=== PATIENT | female | born 1945 | race Caucasian/White ===

== ENCOUNTER → 2017-07-21 | Outpatient (CLI) | payer MEDICARE, BC ==
[2017-07-21 15:19] LABS: Blood Urea Nitrogen 12 mg/dL (7-17)
--- NOTE | 2017-07-21 16:50 | CT ---
EXAMINATION TYPE: CT chest w con DATE OF EXAM: 07/21/2017 COMPARISON: 12/05/2011 HISTORY: 72-year-old female with cough and previous abnormal finding in the lungs. TECHNIQUE: Contiguous axial scanning of the chest after the administration of 100 mL of Omnipaque 300 . Coronal/sagittal reconstructions performed. CT DLP: 376.4mGycm. Automatic exposure control utilized for a dose reduction. FINDINGS: The heart is upper limits of normal in size without pericardial effusion. Aorta normal caliber with bovine configuration to the aortic arch. Large caliber to the main right and left pulmonary arteries are 2.8 cm each suggesting underlying pul monary arterial hypertension. No thoracic lymphadenopathy by CT size criteria. Scattered areas of density in the lower lobes especially dependently likely relate to areas of atelec tasis. No consolidation or pleural effusion. Visualized upper abdomen shows a large hiatal hernia and cholecystectomy clips. Bones: Endplate spondylosis mid to lower thoracic spine. Degenerative changes both shoulders; no osse ous destructive process. IMPRESSION: 1. Enlarged caliber to the main right and left pulmonary arteries. Correlate for pulmonary arterial h ypertension. 2. Large hiatal hernia redemonstrated. 3. Patchy atelectasis in the lower lungs.
== END | disposition home or self-care (01) ==
LOC: RADCTMAIN 14:39
PROVIDERS: ATTEND Family Medicine
DX: J98.11 Atelectasis (principal); K44.9 Diaphragmatic hernia without obstruction or gangrene; I77.89 Other specified disorders of arteries and arterioles; I28.9 Disease of pulmonary vessels, unspecified
CPT/HCPCS: 82565; 84520; 71260; 36415; Q9967

== ENCOUNTER 2017-08-09 08:12 | Day surgery (SDC) | payer MEDICARE, BC ==
[~2017-08-09 08:12] MED LIST: LACTATED RINGERS 1,000 ML IV SCH
[2017-08-09] MEDS ORDERED: LIDOCAINE 1% 20 ML VIAL (10MG/ML) FOR IV START INTRADERMA ONE (08:51)
[2017-08-09 09:05] VITALS: TEMP 97.3
--- NOTE | 2017-08-09 09:15 | P.GSHP ---
History of Present Illness H&P Date: 08/09/17 Chief Complaint: GERD This a 72-year-old female for flexkevin Mccormick. Patient presents today for EGD. Past Medical History Past Medical History: Diabetes Mellitus, GERD/Reflux, Hypertension, Rheumatoid Arthritis (RA), Thyroid Disorder Additional Past Medical History / Comment(s): HX H-PYLORI , SCIATICA PAIN. History of Any Multi-Drug Resistant Organisms: None Reported Past Surgical History: Cholecystectomy, Hysterectomy, Joint Replacement Additional Past Surgical History / Comment(s): TOTAL LEFT KNEE Past Anesthesia/Blood Transfusion Reactions: No Reported Reaction Past Psychological History: Depression Smoking Status: Never smoker Past Alcohol Use History: None Reported Past Drug Use History: None Reported - Past Family History Father Family Medical History: Myocardial Infarction ([place]) Mother Family Medical History: Myocardial Infarction ([place]) Medications and Allergies Home Medications Medication Instructions Recorded Confirmed Type Certolizumab Pegol [Cimzia] 200 mg SQ Q28D 07/01/14 08/09/17 History Folic Acid 1 mg PO DAILY 07/01/14 08/09/17 History Methotrexate Sodium [Methotrexate] 10 mg PO TU 07/01/14 08/09/17 History Omeprazole [PriLOSEC] 20 mg PO DAILY 07/01/14 08/09/17 History Pravastatin Sodium [Pravachol] 40 mg PO DAILY 07/01/14 08/09/17 History metFORMIN HCL [Glucophage] 1,000 mg PO BID-W/MEALS 07/01/14 08/06/17 History Aspirin EC [Ecotrin Low Dose] 81 mg PO DAILY #30 tablet. 07/02/14 08/06/17 Rx Levothyroxine Sodium [Synthroid] 125 mcg PO DAILY 02/18/16 08/09/17 History Cyanocobalamin (Vitamin B-12) 1,000 mcg PO DAILY 08/06/17 08/06/17 History [Vitamin B-12] HYDROcodone/APAP 5-325MG [[place] 1 tab PO DAILY PRN 08/06/17 08/06/17 History 5-325] Multivit-Min/FA/Lycopen/Lutein 1 each PO DAILY 08/06/17 08/06/17 History [Centrum Silver Tablet] amLODIPine BES/OLMESARTAN MED 1 each PO DAILY 08/06/17 08/09/17 History [amLODIPine BES/OLMESARTAN MED 10-40 mg] Allergies Allergy/AdvReac Type Severity Reaction Status Date / Time No Known Allergies Allergy Verified 08/06/17 09:33 Surgical - Exam Vital Signs Temp Pulse Resp BP Pulse Ox 97.3 F L 78 16 137/78 97 08/09/17 09:04 08/09/17 09:04 08/09/17 09:04 08/09/17 09:04 08/09/17 09:04 - General well developed, no distress - Eyes PERRL - ENT normal pinna - Neck no masses - Respiratory normal expansion - Cardiovascular Rhythm: regular - Abdomen Abdomen: soft, non tender Assessment and Plan Assessment: GERD. We'll perform EGD.
[2017-08-09 09:17] LABS: Glucose,Whole Blood 127 mg/dL (75-99)
[2017-08-09] MEDS ORDERED: PROPOFOL 10 MG/ML 20 ML VIAL IV ONE (09:18)
[2017-08-09] MEDS ORDERED: LIDOCAINE 1% INJ 10MG/ML (20 ML MDV) ONE (09:18)
--- NOTE | 2017-08-09 09:34 | P.OP ---
Date of Procedure: 08/09/17 Preoperative Diagnosis: GERD Postoperative Diagnosis: Antral gastritis Large hiatal hernia Mild esophagitis Procedure(s) Performed: EGD Anesthesia: MAC Surgeon: Fred Chi Pathology: other (Antrum, esophagus) Condition: stable Disposition: PACU Description of Procedure: The patient's placed on the endoscopy table in the lateral position. She received IV sedation. The gastroscope placed oropharynx passed in the esophagus and stomach. Scope was then placed through the pylorus. The first and second portion of the duodenum appeared normal. Scope was then brought back the antrum this was mildly inflamed. A biopsies performed. The scope was then retroflexed and the remainder of the stomach appeared normal. Air was a large hiatal hernia. Approximately 30% to the stomach was within the chest. The hernia had a large mouth. The GE junction was at 36 cm. The distal esophagus was mildly inflamed a biopsies performed. The proximal esophagus appeared normal. Scope was withdrawn for patient.
[2017-08-09 09:42] LABS: Glucose,Whole Blood 134 mg/dL (75-99)
[2017-08-09 09:47] VITALS: RESP 18
[2017-08-09 10:00] VITALS: BP 113/73; PULSE 61
== END 2017-08-09 10:15 | disposition home or self-care (01) ==
LOC: ORWHC2ENDO 08:12
PROVIDERS: ATTEND Surgery
DX: K29.50 Unspecified chronic gastritis without bleeding (principal); K44.9 Diaphragmatic hernia without obstruction or gangrene; K21.0 Gastro-esophageal reflux disease with esophagitis; E11.9 Type 2 diabetes mellitus without complications; I10 Essential (primary) hypertension; M06.9 Rheumatoid arthritis, unspecified; E07.9 Disorder of thyroid, unspecified; F32.9 Major depressive disorder, single episode, unspecified; E78.5 Hyperlipidemia, unspecified; Z79.84 Long term (current) use of oral hypoglycemic drugs; Z79.82 Long term (current) use of aspirin; Z79.890 Hormone replacement therapy; Z79.899 Other long term (current) drug therapy
CPT/HCPCS: 88305; 43239; J2001; J2704

== ENCOUNTER → 2017-08-23 | Outpatient (CLI) | payer MEDICARE, BC ==
[2017-08-23 11:21] LABS: Basophils % (A) 1 %; Eosinophils # (A) 0.1 k/uL (0-0.7); Eosinophils % (A) 2 %; HCT 37.2 % (34.0-46.0); HGB 11.9 gm/dL (11.4-16.0); Hypochromasia Slight; Lymphocytes # (A) 2.6 k/uL (1.0-4.8); Lymphocytes % (A) 48 %; MCH 27.4 pg (25.0-35.0); MCV 85.6 fL (80.0-100.0); Mean Platelet Volume 8.3; Monocytes # (A) 0.4 k/uL (0-1.0); Monocytes % (A) 7 %; Neutrophils # (A) 2.1 k/uL (1.3-7.7); Neutrophils % (A) 39 %; Platelet Count 300 k/uL (150-450); RBC 4.35 m/uL (3.80-5.40); RDW 15.9 % (11.5-15.5); WBC 5.3 k/uL (3.8-10.6)
== END | disposition home or self-care (01) ==
LOC: LABPAT 10:46
PROVIDERS: ATTEND Surgery
DX: Z01.812 Encounter for preprocedural laboratory examination (principal); K21.0 Gastro-esophageal reflux disease with esophagitis; F17.200 Nicotine dependence, unspecified, uncomplicated; D64.9 Anemia, unspecified
CPT/HCPCS: 36415; 85025; 86850; 86900; 86901

== ENCOUNTER 2017-08-30 08:50 | Day surgery (SDC) | payer MEDICARE, BC ==
[~2017-08-30 08:50] MED LIST changes: +HEPARIN SODIUM,PORCINE 5,000 UNIT/ML 1 ML VIAL SQ ONE; +LIDOCAINE 1% 20 ML VIAL (10MG/ML) FOR IV START INTRADERMA PRN; +ONDANSETRON 4 MG/2 ML VIAL IVP ONE; +ceFAZolin IN SWFI 2 GM/20 ML SYRINGE IVP ONE
--- NOTE | 2017-08-30 09:04 | P.GSHP ---
History of Present Illness H&P Date: 08/30/17 Chief Complaint: GERD Is a 72-year-old female for flexure Jace.The patient has had long-standing problems with reflux esophagitis. The patient underwent recent EGD is found have evidence of esophagitis. Patient has been well informed on the procedure of laparoscopic Gayle fundoplication. The patient is aware the risk of the conversion to the open procedure, risk of injury to the stomach, liver and spleen. The patient is also a risk of recurrent GERD and dysphagia symptoms. The patient understands there is a postoperative diet of full liquids for 2 weeks after surgery. Past Medical History Past Medical History: Diabetes Mellitus, GERD/Reflux, Hypertension, Rheumatoid Arthritis (RA), Thyroid Disorder Additional Past Medical History / Comment(s): HX H-PYLORI , SCIATICA PAIN Hiatal hernia History of Any Multi-Drug Resistant Organisms: None Reported Past Surgical History: Cholecystectomy, Hysterectomy, Joint Replacement Additional Past Surgical History / Comment(s): TOTAL LEFT KNEE Past Anesthesia/Blood Transfusion Reactions: No Reported Reaction Past Psychological History: Depression Smoking Status: Never smoker Past Alcohol Use History: None Reported Past Drug Use History: None Reported - Past Family History Father Family Medical History: Myocardial Infarction ([place]) Mother Family Medical History: Myocardial Infarction ([place]) Medications and Allergies Home Medications Medication Instructions Recorded Confirmed Type Certolizumab Pegol [Cimzia] 200 mg SQ Q28D 07/01/14 08/19/17 History Folic Acid 1 mg PO DAILY 07/01/14 08/19/17 History Methotrexate Sodium [Methotrexate] 10 mg PO TU 07/01/14 08/19/17 History Omeprazole [PriLOSEC] 20 mg PO DAILY 07/01/14 08/19/17 History Pravastatin Sodium [Pravachol] 40 mg PO DAILY 07/01/14 08/19/17 History metFORMIN HCL [Glucophage] 1,000 mg PO BID-W/MEALS 07/01/14 08/19/17 History Aspirin EC [Ecotrin Low Dose] 81 mg PO DAILY #30 tablet. 07/02/14 08/19/17 Rx Levothyroxine Sodium [Synthroid] 125 mcg PO DAILY 02/18/16 08/19/17 History Cyanocobalamin (Vitamin B-12) 1,000 mcg PO DAILY 08/06/17 08/19/17 History [Vitamin B-12] HYDROcodone/APAP 5-325MG [[place] 1 tab PO DAILY PRN 08/06/17 08/19/17 History 5-325] Multivit-Min/FA/Lycopen/Lutein 1 each PO DAILY 08/06/17 08/19/17 History [Centrum Silver Tablet] amLODIPine BES/OLMESARTAN MED 1 each PO DAILY 08/06/17 08/19/17 History [amLODIPine BES/OLMESARTAN MED 10-40 mg] Allergies Allergy/AdvReac Type Severity Reaction Status Date / Time No Known Allergies Allergy Verified 08/19/17 09:09 Surgical - Exam - General well developed, no distress - Eyes PERRL - ENT normal pinna - Neck no masses - Respiratory normal expansion - Cardiovascular Rhythm: regular - Abdomen Abdomen: soft, non tender Assessment and Plan Assessment: GERD. We will perform laparoscopic Gayle fundal plication.
[2017-08-30 09:31] LABS: Glucose,Whole Blood 133 mg/dL (75-99)
[2017-08-30] MEDS ORDERED: LEVOTHYROXINE 125 MCG TAB PO STA (09:35)
[2017-08-30] MEDS ORDERED: GLYCOPYRROLATE 0.2 MG/ML 2 ML VIAL ONE (09:37)
[2017-08-30] MEDS ORDERED: PROPOFOL 10 MG/ML 20 ML VIAL IV ONE (09:37)
[2017-08-30] MEDS ORDERED: MIDAZOLAM 2 MG/2 ML VIAL ONE (09:37)
[2017-08-30] MEDS ORDERED: NEOSTIGMINE 1 MG/ML 10 ML VIAL ONE (09:37)
[2017-08-30] MEDS ORDERED: ROCURONIUM BROMIDE 10 MG/ML 10 ML VIAL IV ONE (09:37)
[2017-08-30] MEDS ORDERED: ePHEDrine 50 MG/ML 1 ML AMP ONE (09:37)
[2017-08-30] MEDS ORDERED: fentaNYL (PF) 50 MCG/ML 2 ML AMP ONE (09:37)
[2017-08-30] MEDS ORDERED: LIDOCAINE 1% INJ 10MG/ML (20 ML MDV) ONE (09:37)
[2017-08-30] MEDS ORDERED: SUCCINYLCHOLINE CHLORIDE 100 MG/5 ML SYR IV ONE (09:37)
[2017-08-30] MEDS ORDERED: BUPIVACAINE (PF) 0.25% 30 ML VIAL SQ ONE (10:01)
[2017-08-30] MEDS ORDERED: LACTATED RINGERS 1,000 ML IV ONE (10:25)
[2017-08-30] MEDS ORDERED: MORPHINE SULFATE 4MG/4ML SYRG IVP PRN ×2 (10:58→14:13)
[2017-08-30] MEDS ORDERED: ONDANSETRON 4 MG/2 ML VIAL IVP PRN (10:58)
[2017-08-30] MEDS: MORPHINE SULFATE 2 MG/ML SYRINGE IV PRN ×4 (11:15→11:48)
[2017-08-30] MEDS ORDERED: MEPERIDINE 50 MG/ML SYRINGE IVP ONE ×2 (11:25→11:32)
[2017-08-30 12:04] LABS: Glucose,Whole Blood 150 mg/dL (75-99)
[2017-08-30] MEDS: D5-0.45% NACL WITH KCL 20MEQ/L 1,000 ML IV SCH ×2 (12:29→20:13)
--- NOTE | 2017-08-30 12:45 | P.OP ---
Date of Procedure: 08/30/17 Preoperative Diagnosis: GERD Postoperative Diagnosis: Large hiatal hernia Procedure(s) Performed: Laparoscopic Gayle fundoplication with mesh repair of hiatal hernia Anesthesia: ERIC Surgeon: Fred Chi Estimated Blood Loss (ml): 5 Pathology: none sent Condition: stable Disposition: PACU Description of Procedure: The patient was placed on the operating table in the supine position. She received general anesthesia. She was then placed in dorsal lithotomy position. Her abdomen was prepped and draped in the usual sterile fashion. The skin incision sites were anesthetized with 1% local Xylocaine. The skin was incised in the left periumbilical area with an 11 scalpel. Using a 5 mm blade was trocar under direct visitation the peritoneal cavity was entered. And then insufflated. After adequate insufflation the laparoscope was placed back into the peritoneal cavity. Next a 5 mm trocar was placed in the right epigastric and then the right lateral position. Another 5 mm trochars placed in the left lateral position. Another 5 mm trocar placed in the left epigastric position. And the original left periumbilical trocar was exchanged for a 10 mm trocar. The left lateral lobe liver was retracted. The patient had a large hiatal hernia. Using the Harmonic scissors the crural defect was dissected in the Harmonic scissors were used to dissect the hiatal hernia sac. The fundus of the stomach was completely mobilized by using the Harmonic scissors to divide short gastric vessels. The stomach was reduced into the peritoneal cavity. The crura was dissected with the Harmonic scissors. And then the crural repair was performed using 2-0 Ethibond suture. The [facility] bio A mesh was then placed over top of the repair and secured with 2-0 Ethibond suture. Next a 58-Spanish bougie dilator was placed the patient's oral pharynx and into the esophagus into the stomach by the KNITTING DEMONSTRATOR. The fundoplication was then performed using 2-0 Ethibond suture. A 180 fundoplication was performed. At this point the dilator was withdrawn. The stomach and esophagus were inspected there is known to any injury to the stomach or esophagus. The abdomen was irrigated there is no bleeding seen. The trochars are withdrawn. Skin was closed interrupted 3-0 Monocryl suture. Dermabond was applied. Patient tolerated procedure well and was sent to recovery in stable condition.
[2017-08-30] MEDS: METOCLOPRAMIDE 5 MG/ML 2 ML VIAL IVP SCH ×2 (13:37→17:16)
[2017-08-30] MEDS: MORPHINE SULFATE 4MG/4ML SYRG IVP PRN ×3 (14:25→20:59)
--- NOTE | 2017-08-30 14:32 | P.CONS ---
History of Present Illness - Reason for Consult Consult date: 08/30/17 Medical management Requesting physician: Fred Chi - Chief Complaint Status post Gayle fundoplication - History of Present Illness This is a 72-year-old female, patient of [facility]. She has a known past medical history of GERD, diabetes mellitus type 2, hypertension, rheumatoid arthritis, TIA and hyperlipidemia. Patient presents to the hospital for a laparoscopic Gayle fundoplication with mesh repair of hiatal hernia. Patient tolerated surgery well. She is currently complaining a lot of shoulder pain which likely contributed to gas pain. She is just starting to wake up after surgery. Nursing staff will be getting patient up shortly to ambulate. She denies any chest pain or shortness of breath. Denies any nausea or vomiting. Denies any abdominal pain. Denies any urinary symptoms or bowel movement changes prior to surgery. She is not passing gas. We have been consulted for medical management. Review of Systems Please refer to HPI otherwise unremarkable Past Medical History Past Medical History: Diabetes Mellitus, GERD/Reflux, Hypertension, Rheumatoid Arthritis (RA), Thyroid Disorder Additional Past Medical History / Comment(s): HX H-PYLORI , SCIATICA PAIN Hiatal hernia History of Any Multi-Drug Resistant Organisms: None Reported Past Surgical History: Cholecystectomy, Hysterectomy, Joint Replacement Additional Past Surgical History / Comment(s): TOTAL LEFT KNEE Past Anesthesia/Blood Transfusion Reactions: No Reported Reaction Past Psychological History: Depression Smoking Status: Never smoker Past Alcohol Use History: None Reported Past Drug Use History: None Reported - Past Family History Father Family Medical History: Myocardial Infarction ([place]) Mother Family Medical History: Myocardial Infarction ([place]) Medications and Allergies Home Medications Medication Instructions Recorded Confirmed Type Certolizumab Pegol [Cimzia] 200 mg SQ Q28D 07/01/14 08/30/17 History Folic Acid 1 mg PO DAILY 07/01/14 08/30/17 History Methotrexate Sodium [Methotrexate] 10 mg PO TU 07/01/14 08/30/17 History Omeprazole [PriLOSEC] 20 mg PO DAILY 07/01/14 08/30/17 History Pravastatin Sodium [Pravachol] 40 mg PO DAILY 07/01/14 08/30/17 History metFORMIN HCL [Glucophage] 1,000 mg PO BID-W/MEALS 07/01/14 08/30/17 History Aspirin EC [Ecotrin Low Dose] 81 mg PO DAILY #30 tablet. 07/02/14 08/30/17 Rx Levothyroxine Sodium [Synthroid] 125 mcg PO DAILY 02/18/16 08/30/17 History Cyanocobalamin (Vitamin B-12) 1,000 mcg PO DAILY 08/06/17 08/30/17 History [Vitamin B-12] HYDROcodone/APAP 5-325MG [[place] 1 tab PO DAILY PRN 08/06/17 08/30/17 History 5-325] Multivit-Min/FA/Lycopen/Lutein 1 each PO DAILY 08/06/17 08/30/17 History [Centrum Silver Tablet] amLODIPine BES/OLMESARTAN MED 1 each PO DAILY 08/06/17 08/30/17 History [amLODIPine BES/OLMESARTAN MED 10-40 mg] Allergies Allergy/AdvReac Type Severity Reaction Status Date / Time No Known Allergies Allergy Verified 08/30/17 12:33 Physical Exam Vitals: Vital Signs Temp Pulse Pulse Resp BP Pulse Ox 08/30/17 12:45 64 16 107/58 100 08/30/17 12:30 64 16 106/59 98 08/30/17 12:15 97 F L 62 16 95/55 96 08/30/17 11:58 62 16 109/54 94 L 08/30/17 11:39 87 16 117/56 99 08/30/17 11:24 88 16 118/59 98 08/30/17 11:08 110 H 20 119/55 96 08/30/17 09:07 98.2 F 95 16 126/71 98 Intake and Output 08/29/17 08/30/17 08/30/17 22:59 06:59 14:59 Intake Total 1775 Output Total 10 Balance 1765 Intake: IV 1775 Output: Estimated Blood Loss 10 Other: # Voids 0 Weight 79.379 kg Head normocephalic Neck supple Lungs clear to auscultation bilaterally no wheezing or crackles Heart regular rate and rhythm S1-S2, no rub or gallop Abdomen is soft nontender nondistended positive bowel sounds no hepatosplenomegaly Extremities no edema Neuro alert and orientated to 3 Results Labs: Abnormal Lab Results - Last 24 Hours (Table) 08/30/17 08/30/17 Range/Units 09:13 12:03 POC Glucose (mg/dL) 133 H 150 H (75-99) mg/dL Assessment and Plan Assessment: 1. GERD and large hiatal hernia Status post laparoscopic Gayle fundoplication with mesh repair of hiatal hernia. Continue pain control and postop orders per surgery. Awaiting esophagram. Encouraged patient to get up and ambulate. Continue with heating pads to the shoulder area. 2. Diabetes mellitus type 2: Hold metformin. Place patient on sliding scale coverage 3. History of TIA: Aspirin 81 mg on hold 4. Rheumatoid arthritis 5. Hyperlipidemia resume statin 6. Essential hypertension: Blood pressures are in the lower 100s. We'll patient's blood pressure meds for now 7. Hypothyroidism resume Synthroid GI prophylaxis Pepcid and DVT prophylaxis Lovenox Thank you for this consultation. We'll continue to follow along during patient' s hospitalization Time with Patient: Greater than 30 (Greater than 50% of the total time spent in counseling and coordination of care.I performed an examination of the patient and discussed their management with the physician Learning And Development Specialist. I have reviewed the Physician Learning And Development Specialist's notes and agree with the documented findings and plan of care)
--- NOTE | 2017-08-30 16:42 | FL ---
EXAMINATION TYPE: FL esophagus cervic/pharynx DATE OF EXAM: 08/30/2017 LIMITED UGI-ESOPHAGRAM: CLINICAL HISTORY: History of hiatal hernia per patient, [place] fundoplication surgery earlier today. TECHNIQUE: Limited esophagram is performed utilizing 30 oz of Omnipaque 350. A total of 1.03 minutes of fluoroscopic time was utilized during procedure. 23 spot images are saved to PACS. FINDINGS: The patient swallowed contrast without difficulty or delay. Esophageal peristalsis and mo tility are satisfactory for patient's age. There is some flow of contrast along the diaphragmatic hia tus into the stomach, there is no evidence of contrast extravasation to suggest leak. Some contrast r emains in distal esophagus. No persistent hiatal hernia is seen. There is right-sided curvilinear den sity adjacent to distal aspect of esophagus at area of prior large hiatal hernia could reflect medias tinal air related to surgical procedure. Patient does not show increased nausea. Cholecystectomy clip s are noted. Pneumoperitoneum below right hemidiaphragm is seen slightly more prominent than typical. IMPRESSION: There is mild to moderate obstruction at diaphragmatic hiatus but patient does not show i ncreased symptoms of nausea. No residual hiatal hernia noted.
[2017-08-30 17:01] LABS: Glucose,Whole Blood 181 mg/dL (75-99)
[2017-08-30] MEDS: INSULIN ASPART 100 UNIT/ML 1 ML 10 ML VIAL SQ SCH ×2 (17:10→21:06)
[2017-08-30] MEDS: FAMOTIDINE 20 MG/2 ML VIAL IV SCH (20:59)
[2017-08-30 21:08] LABS: Glucose,Whole Blood 186 mg/dL (75-99)
[2017-08-31] MEDS: METOCLOPRAMIDE 5 MG/ML 2 ML VIAL IVP SCH ×3 (00:17→12:32)
[2017-08-31] MEDS: D5-0.45% NACL WITH KCL 20MEQ/L 1,000 ML IV SCH (03:41)
[2017-08-31] MEDS: MORPHINE SULFATE 4MG/4ML SYRG IVP PRN (05:59)
[2017-08-31 06:05] LABS: Glucose,Whole Blood 166 mg/dL (75-99)
[2017-08-31] MEDS: INSULIN ASPART 100 UNIT/ML 1 ML 10 ML VIAL SQ SCH ×2 (06:07→11:36)
[2017-08-31] MEDS ORDERED: LEVOTHYROXINE 125 MCG TAB PO SCH ×2 (06:30)
[2017-08-31 07:06] LABS: Basophils % (A) 0 %; Eosinophils # (A) 0.1 k/uL (0-0.7); Eosinophils % (A) 1 %; HCT 32.5 % (34.0-46.0); HGB 10.2 gm/dL (11.4-16.0); Lymphocytes # (A) 1.9 k/uL (1.0-4.8); Lymphocytes % (A) 26 %; MCH 26.6 pg (25.0-35.0); MCHC 31.3 g/dL (31.0-37.0); Mean Platelet Volume 7.5; Monocytes # (A) 0.5 k/uL (0-1.0); Monocytes % (A) 8 %; Neutrophils # (A) 4.4 k/uL (1.3-7.7); Neutrophils % (A) 62 %; Platelet Count 264 k/uL (150-450); RBC 3.82 m/uL (3.80-5.40)
[2017-08-31] MEDS: FAMOTIDINE 20 MG/2 ML VIAL IV SCH (08:47)
[2017-08-31] MEDS ORDERED: PRAVASTATIN SODIUM 40 MG TAB PO SCH (09:00)
[2017-08-31] MEDS ORDERED: ENOXAPARIN 40 MG/0.4 ML SYRINGE SQ SCH (09:00)
[2017-08-31] MEDS ORDERED: MORPHINE ORAL SOLN 10 MG/5 ML CUP PO PRN (09:24)
[2017-08-31] MEDS ORDERED: LOSARTAN 50 MG TAB PO SCH (10:00)
[2017-08-31] MEDS ORDERED: amLODIPine 10 MG TAB PO SCH (10:00)
--- NOTE | 2017-08-31 10:00 | P.PN ---
Subjective Progress Note Date: 08/31/17 This is a 72-year-old female, patient of [facility]. She has a known past medical history of GERD, diabetes mellitus type 2, hypertension, rheumatoid arthritis, TIA and hyperlipidemia. Patient presents to the hospital for a laparoscopic Gayle fundoplication with mesh repair of hiatal hernia. Patient tolerated surgery well. She is currently complaining a lot of shoulder pain which likely contributed to gas pain. She is just starting to wake up after surgery. Nursing staff will be getting patient up shortly to ambulate. She denies any chest pain or shortness of breath. Denies any nausea or vomiting. Denies any abdominal pain. Denies any urinary symptoms or bowel movement changes prior to surgery. She is not passing gas. We have been consulted for medical management. 08/31/2017 patient is tolerating diet. Her shoulder and gas pain has resolved. She denies any passing gas or bowel movement yet. Denies any burning with urination. Denies any chest pain or shortness of breath. Anticipating discharge later this afternoon. Objective - Vital Signs Vital signs: Vital Signs Temp 98.2 F 08/31/17 00:00 Pulse 82 08/31/17 00:00 Resp 18 08/31/17 00:00 BP 122/67 08/31/17 00:00 Pulse Ox 95 08/31/17 00:00 Intake & Output 08/30/17 08/31/17 08/31/17 18:59 06:59 18:59 Intake Total 1775 1170 Output Total 10 Balance 1765 1170 Weight 79.379 kg Intake: IV 1775 Intake, IV Titration 930 Amount D5-0.45% NaCl with KCl 930 20Meq/l 1,000 ml @ 125 mls/hr IV .Q8H HEENA Rx#: [id number] Oral 240 Output: Estimated Blood Loss 10 Other: # Voids 0 1 - Exam Head normocephalic Neck supple Lungs clear to auscultation bilaterally no wheezing or crackles Heart regular rate and rhythm S1-S2, no rub or gallop Abdomen is soft nontender nondistended positive bowel sounds no hepatosplenomegaly Extremities no edema Neuro alert and orientated to 3 - Labs CBC & Chem 7: 08/31/17 06:26 Labs: Abnormal Lab Results - Last 24 Hours (Table) 08/30/17 08/30/17 08/30/17 Range/Units 12:03 17:00 20:58 Hgb (11.4-16.0) gm/dL Hct (34.0-46.0) % RDW (11.5-15.5) % POC Glucose (mg/dL) 150 H 181 H 186 H (75-99) mg/dL 08/31/17 08/31/17 Range/Units 06:03 06:26 Hgb 10.2 L (11.4-16.0) gm/dL Hct 32.5 L (34.0-46.0) % RDW 16.0 H (11.5-15.5) % POC Glucose (mg/dL) 166 H (75-99) mg/dL Assessment and Plan Assessment: 1. GERD and large hiatal hernia Status post laparoscopic Gayle fundoplication with mesh repair of hiatal hernia. Continue pain control and postop orders per surgery. Esophagram showing mild to moderate obstruction at diaphragmatic hiatus. Tolerating diet 2. Diabetes mellitus type 2: Hold metformin. Place patient on sliding scale coverage 3. History of TIA: Aspirin 81 mg on hold 4. Rheumatoid arthritis 5. Hyperlipidemia resume statin 6. Essential hypertension: Blood pressure has shown improvement. We'll resume patient's blood pressure medication 7. Hypothyroidism resume Synthroid GI prophylaxis Pepcid and DVT prophylaxis Lovenox Patient is medically stable for discharge once cleared by surgical service I performed an examination of the patient and discussed their management with the physician Tour Coordinator. I have reviewed the Physician Tour Coordinator's notes and agree with the documented findings and plan of care
--- NOTE | 2017-08-31 10:04 | P.DS ---
Providers Expected date of discharge: 08/31/17 Attending physician: Fred Chi Consults: 08/30/17 10:58 Consult Physician Routine Consulting Provider: Tomer Johns Consult Reason/Comments: Medical management Do you want consulting provider notified?: Yes Primary care physician: Milly Mccormick [facility] Course: 72-year-old female admitted on elective admission to undergo laparoscopic gayle fundoplication for long-standing problems with reflux esophagitis patient did undergo a recent EGD showed evidence of esophagitis postop tolerating full liquid diet. Surgical incision sites were dry patient was up ambulatory on the unit. Pain medication effective for pain control patient was felt to be stable to proceed with a discharge to home Impression discharge diagnoses A recent EGD showing evidence of esophagitis Chronic reflux esophagitis Status post August 30 laparoscopic Gayle fundoplication for symptomatic esophageal reflux esophagitis Type 2 diabetes Hypertension essential Rheumatoid arthritis Hyperlipidemia Hypothyroid History of a TIA on aspirin The above impression and plan of care have been discussed and directed by signing physician. Lzu Boyce nurse practitioner acting as scribe for signing physician. Plan - Discharge Summary Discharge Rx Participant: Yes New Discharge Prescriptions: Continue Omeprazole [PriLOSEC] 20 mg PO DAILY Certolizumab Pegol [Cimzia] 200 mg SQ Q28D Methotrexate Sodium [Methotrexate] 10 mg PO TU metFORMIN HCL [Glucophage] 1,000 mg PO BID-W/MEALS Folic Acid 1 mg PO DAILY Pravastatin Sodium [Pravachol] 40 mg PO DAILY Aspirin EC [Ecotrin Low Dose] 81 mg PO DAILY #30 tablet. Levothyroxine Sodium [Synthroid] 125 mcg PO DAILY amLODIPine BES/OLMESARTAN MED [amLODIPine BES/OLMESARTAN MED 10-40 mg] 1 each PO DAILY HYDROcodone/APAP 5-325MG [[place] 5-325] 1 tab PO DAILY PRN PRN Reason: Pain Multivit-Min/FA/Lycopen/Lutein [Centrum Silver Tablet] 1 each PO DAILY Cyanocobalamin (Vitamin B-12) [Vitamin B-12] 1,000 mcg PO DAILY Discharge Medication List Certolizumab Pegol [Cimzia] 200 mg SQ Q28D 07/01/14 [History] Folic Acid 1 mg PO DAILY 07/01/14 [History] Methotrexate Sodium [Methotrexate] 10 mg PO TU 07/01/14 [History] Omeprazole [PriLOSEC] 20 mg PO DAILY 07/01/14 [History] Pravastatin Sodium [Pravachol] 40 mg PO DAILY 07/01/14 [History] metFORMIN HCL [Glucophage] 1,000 mg PO BID-W/MEALS 07/01/14 [History] Aspirin EC [Ecotrin Low Dose] 81 mg PO DAILY #30 tablet. 07/02/14 [Rx] Levothyroxine Sodium [Synthroid] 125 mcg PO DAILY 02/18/16 [History] Cyanocobalamin (Vitamin B-12) [Vitamin B-12] 1,000 mcg PO DAILY 08/06/17 [ History] HYDROcodone/APAP 5-325MG [[place] 5-325] 1 tab PO DAILY PRN 08/06/17 [History] Multivit-Min/FA/Lycopen/Lutein [Centrum Silver Tablet] 1 each PO DAILY 08/06/17 [History] amLODIPine BES/OLMESARTAN MED [amLODIPine BES/OLMESARTAN MED 10-40 mg] 1 each PO DAILY 08/06/17 [History] Follow up Appointment(s)/Referral(s): Fred Chi MD [STAFF PHYSICIAN] - 1 Week Activity/Diet/Wound Care/Special Instructions: Full liquid diet for 2 weeks No tub bath for six weeks. Shower daily. No lifting over 10 pounds for the next 6 weeks. Encourage walking every hour while awake May use ice packs to surgical site. No driving while taking narcotic for pain. Discharge Disposition: HOME SELF-CARE
[2017-08-31 10:29] LABS: ALT 40 U/L (9-52); AST 40 U/L (14-36); Albumin 3.3 g/dL (3.5-5.0); Alkaline Phosphatase 51 U/L (38-126); Anion Gap 12 mmol/L; Blood Urea Nitrogen 9 mg/dL (7-17); Calcium 9.3 mg/dL (8.4-10.2); Carbon Dioxide 20 mmol/L (22-30); Chloride 107 mmol/L (98-107); Glucose 144 mg/dL (74-99); Potassium 4.6 mmol/L (3.5-5.1); Sodium 139 mmol/L (137-145); Total Bilirubin 0.4 mg/dL (0.2-1.3); Total Protein 6.1 g/dL (6.3-8.2)
[2017-08-31 11:31] LABS: Glucose,Whole Blood 109 mg/dL (75-99)
[2017-08-31] MEDS ORDERED: METHOTREXATE SODIUM 2.5 MG TAB PO SCH (12:00)
[2017-08-31] MEDS ORDERED: FOLIC ACID 1 MG TAB PO SCH (12:00)
[2017-08-31 14:05] VITALS: BP 140/73; PULSE 79; RESP 16; TEMP 98
[2017-08-31 14:06] LABS: Hemoglobin A1C 6.5 % (4.0-6.0)
== END 2017-08-31 16:24 | disposition home or self-care (01) ==
LOC: OR 08:50 → 6PED 10:52 → OR 08-31 16:24
PROVIDERS: ATTEND Surgery
DX: K21.9 Gastro-esophageal reflux disease without esophagitis (principal); K44.9 Diaphragmatic hernia without obstruction or gangrene; E11.9 Type 2 diabetes mellitus without complications; Z79.84 Long term (current) use of oral hypoglycemic drugs; I10 Essential (primary) hypertension; M06.9 Rheumatoid arthritis, unspecified; E03.9 Hypothyroidism, unspecified; M54.30 Sciatica, unspecified side; E78.5 Hyperlipidemia, unspecified; Z86.73 Personal history of transient ischemic attack (TIA), and cerebral infarction without residual deficits; Z79.82 Long term (current) use of aspirin; Z79.890 Hormone replacement therapy; Z79.899 Other long term (current) drug therapy
CPT/HCPCS: 80053; 85025; 83036; 74210; 43282; C1781; J2250; J1644; J2710; J2765 ×2; Q9967; J2175; J2405; J2001; J1650; J8610; J3010; J2270 ×3; J0330; J2704; J0690; 86850; 86900; 86901

== ENCOUNTER 2019-07-04 14:32 | Emergency (ER) | payer MEDICARE, BC ==
[2019-07-04 14:39] VITALS: RESP 20
[2019-07-04] MEDS ORDERED: ONDANSETRON 4 MG/2 ML VIAL IVP STA (14:55)
[2019-07-04] MEDS ORDERED: MORPHINE SULFATE 4 MG/ML SYRINGE IV STA (14:55)
[2019-07-04] MEDS ORDERED: SODIUM CHLORIDE 0.9% 1,000 ML IV STA (14:55)
--- NOTE | 2019-07-04 15:13 | ED ---
Abdominal Pain HPI - General Chief Complaint: Abdominal Pain Stated Complaint: Abdominal Pain Time Seen by Provider: 07/04/19 14:40 Source: patient Mode of arrival: ambulatory Limitations: no limitations - History of Present Illness Initial Comments: 74-year-old female patient presents to the emergency department today for evaluation of right-sided abdominal pain. Patient states the pain started around 11:00 this morning. Patient states initially the pain was intermittent, but is now constant. She denies any pain radiation through to her back. Malcom yun denies any increased pain with movement. She states the pain feels like a burning pain is deep inside. States that she has decreased appetite. No vomiting. Denies any constipation or diarrhea. Denies any hematuria, dysuria, urinary frequency, urinary urgency. Denies fever or chills. Patient denies any recent rash, shortness breath, chest pain, numbness, tingling, dizziness, weakness, headache, visual changes, or any other complaints. - Related Data Home Medications Medication Instructions Recorded Confirmed Certolizumab Pegol [Cimzia] 200 mg SQ Q28D 07/01/14 08/30/17 Folic Acid 1 mg PO DAILY 07/01/14 08/30/17 Methotrexate Sodium [Methotrexate] 10 mg PO TU 07/01/14 08/30/17 Omeprazole [PriLOSEC] 20 mg PO DAILY 07/01/14 08/30/17 Pravastatin Sodium [Pravachol] 40 mg PO DAILY 07/01/14 08/30/17 metFORMIN HCL [Glucophage] 1,000 mg PO BID-W/MEALS 07/01/14 08/30/17 Levothyroxine Sodium [Synthroid] 125 mcg PO DAILY 02/18/16 08/30/17 Cyanocobalamin (Vitamin B-12) 1,000 mcg PO DAILY 08/06/17 08/30/17 [Vitamin B-12] HYDROcodone/APAP 5-325MG [[place] 1 tab PO DAILY PRN 08/06/17 08/30/17 5-325] Multivit-Min/FA/Lycopen/Lutein 1 each PO DAILY 08/06/17 08/30/17 [Centrum Silver Tablet] amLODIPine BES/OLMESARTAN MED 1 each PO DAILY 08/06/17 08/30/17 [amLODIPine BES/OLMESARTAN MED 10-40 MG] Previous Rx's Medication Instructions Recorded Aspirin EC [Ecotrin Low Dose] 81 mg PO DAILY #30 tablet. 07/02/14 Allergies Allergy/AdvReac Type Severity Reaction Status Date / Time No Known Allergies Allergy Verified 07/04/19 14:39 Review of Systems ROS Statement: Those systems with pertinent positive or pertinent negative responses have been documented in the HPI. ROS Other: All systems not noted in ROS Statement are negative. Past Medical History Past Medical History: Diabetes Mellitus, GERD/Reflux, Hypertension, Rheumatoid Arthritis (RA), Thyroid Disorder Additional Past Medical History / Comment(s): HX H-PYLORI , SCIATICA PAIN Hiatal hernia History of Any Multi-Drug Resistant Organisms: None Reported Past Surgical History: Cholecystectomy, Hysterectomy, Joint Replacement Additional Past Surgical History / Comment(s): TOTAL LEFT KNEE Past Anesthesia/Blood Transfusion Reactions: No Reported Reaction Past Psychological History: Depression Smoking Status: Never smoker Past Alcohol Use History: None Reported Past Drug Use History: None Reported - Past Family History Father Family Medical History: Myocardial Infarction ([place]) Mother Family Medical History: Myocardial Infarction ([place]) General Exam Limitations: no limitations General appearance: alert, in no apparent distress, other (This is a well- developed, well-nourished elderly female patient in no acute distress. Vital signs upon presentation are temperature 97.7F, pulse 93, respirations 20, blood pressure 146/85, pulse ox 99% on room air) Eye exam: Present: normal appearance, PERRL, EOMI. Absent: scleral icterus, conjunctival injection, periorbital swelling ENT exam: Present: normal exam, normal oropharynx, mucous membranes moist Respiratory exam: Present: normal lung sounds bilaterally. Absent: respiratory distress, wheezes, rales, rhonchi, stridor Cardiovascular Exam: Present: regular rate, normal rhythm, normal heart sounds. Absent: systolic murmur, diastolic murmur, rubs, gallop, clicks GI/Abdominal exam: Present: soft, normal bowel sounds. Absent: distended, tenderness, guarding, rebound, rigid Neurological exam: Present: alert, oriented X3, CN II-XII intact Psychiatric exam: Present: normal affect, normal mood Skin exam: Present: warm, dry, intact, normal color. Absent: rash Course Vital Signs 07/04/19 14:37 Temperature 97.7 F Pulse Rate 93 Respiratory 20 Rate Blood Pressure 146/85 O2 Sat by Pulse 99 Oximetry Medical Decision Making - Medical Decision Making 74-year-old female patient presents to the emergency department today for eval uation of right-sided abdominal pain. Patient is reporting a deep burning type pain. Physical examination did reveal soft nontender abdomen. Pain was not reproducible palpation of the abdomen. Labs reviewed and did reveal elevated white blood cell count at 12.6. Patient is afebrile with stable vital signs. CT of the abdomen and pelvis shows dilated fluid-filled loops of small bowel. No evidence for obstruction. Findings are consistent with enteritis. There is also a lesion on the liver measuring 15 mm. Patient was given IV fluids and morphine here in the emergency department. Upon reevaluation patient does report improvement of symptoms. States that her pain is very low. She is resting comfortably. She does feel comfortable being discharged home. We did discuss findings on computed tomography scan including the liver lesion. She is informed that this may be cancerous and she should have it evaluated by her primary care physician with further imaging or studies. She verbalizes understanding of this. She is instructed follow up with her primary care physician for recheck in 1-2 days. Return parameters were discussed in detail. She verbalizes understanding and agrees with this plan. - Lab Data Result diagrams: 07/04/19 14:59 07/04/19 14:59 Lab Results 07/04/19 07/04/19 07/04/19 Range/Units 14:59 14:59 14:59 WBC 12.5 H (3.8-10.6) k/uL RBC 4.65 (3.80-5.40) m/uL Hgb 14.1 (11.4-16.0) gm/dL Hct 43.2 (34.0-46.0) % MCV 92.8 (80.0-100.0) fL MCH 30.4 (25.0-35.0) pg MCHC 32.7 (31.0-37.0) g/dL RDW 12.4 (11.5-15.5) % Plt Count 254 (150-450) k/uL Neutrophils % 68 % Lymphocytes % 22 % Monocytes % 6 % Eosinophils % 2 % Basophils % 0 % Neutrophils # 8.5 H (1.3-7.7) k/uL Lymphocytes # 2.7 (1.0-4.8) k/uL Monocytes # 0.7 (0-1.0) k/uL Eosinophils # 0.2 (0-0.7) k/uL Basophils # 0.0 (0-0.2) k/uL Sodium 135 L (137-145) mmol/L Potassium 4.7 (3.5-5.1) mmol/L Chloride 103 (98-107) mmol/L Carbon Dioxide 21 L (22-30) mmol/L Anion Gap 11 mmol/L BUN 19 H (7-17) mg/dL Creatinine 0.85 (0.52-1.04) mg/dL Est GFR (CKD-EPI)AfAm 79 (>60 ml/min/1.73 sqM) Est GFR (CKD-EPI)NonAf 68 (>60 ml/min/1.73 sqM) Glucose 127 H (74-99) mg/dL Plasma Lactic Acid Reza 1.8 (0.7-2.0) mmol/L Calcium 10.4 H (8.4-10.2) mg/dL Total Bilirubin 0.4 (0.2-1.3) mg/dL AST 26 (14-36) U/L ALT 18 (4-34) U/L Alkaline Phosphatase 76 (38-126) U/L Total Protein 8.0 (6.3-8.2) g/dL Albumin 4.6 (3.5-5.0) g/dL Amylase 88 (30-110) U/L Lipase 233 (23-300) U/L Urine Color Urine Appearance (Clear) Urine pH (5.0-8.0) Ur Specific [place] (1.001-1.035) Urine Protein (Negative) Urine Glucose (UA) (Negative) Urine Ketones (Negative) Urine Blood (Negative) Urine Nitrite (Negative) Urine Bilirubin (Negative) Urine Urobilinogen (<2.0) mg/dL Ur Leukocyte Esterase (Negative) 07/04/19 Range/Units 16:00 WBC (3.8-10.6) k/uL RBC (3.80-5.40) m/uL Hgb (11.4-16.0) gm/dL Hct (34.0-46.0) % MCV (80.0-100.0) fL MCH (25.0-35.0) pg MCHC (31.0-37.0) g/dL RDW (11.5-15.5) % Plt Count (150-450) k/uL Neutrophils % % Lymphocytes % % Monocytes % % Eosinophils % % Basophils % % Neutrophils # (1.3-7.7) k/uL Lymphocytes # (1.0-4.8) k/uL Monocytes # (0-1.0) k/uL Eosinophils # (0-0.7) k/uL Basophils # (0-0.2) k/uL Sodium (137-145) mmol/L Potassium (3.5-5.1) mmol/L Chloride (98-107) mmol/L Carbon Dioxide (22-30) mmol/L Anion Gap mmol/L BUN (7-17) mg/dL Creatinine (0.52-1.04) mg/dL Est GFR (CKD-EPI)AfAm (>60 ml/min/1.73 sqM) Est GFR (CKD-EPI)NonAf (>60 ml/min/1.73 sqM) Glucose (74-99) mg/dL Plasma Lactic Acid Reza (0.7-2.0) mmol/L Calcium (8.4-10.2) mg/dL Total Bilirubin (0.2-1.3) mg/dL AST (14-36) U/L ALT (4-34) U/L Alkaline Phosphatase (38-126) U/L Total Protein (6.3-8.2) g/dL Albumin (3.5-5.0) g/dL Amylase (30-110) U/L Lipase (23-300) U/L Urine Color Yellow Urine Appearance Clear (Clear) Urine pH 5.0 (5.0-8.0) Ur Specific [place] 1.010 (1.001-1.035) Urine Protein Negative (Negative) Urine Glucose (UA) Negative (Negative) Urine Ketones Negative (Negative) Urine Blood Negative (Negative) Urine Nitrite Negative (Negative) Urine Bilirubin Negative (Negative) Urine Urobilinogen <2.0 (<2.0) mg/dL Ur Leukocyte Esterase Negative (Negative) - Radiology Data Radiology results: report reviewed, image reviewed CT abdomen and pelvis with contrast was obtained . Report was reviewed in its entirety. Impression by Dr. Horan shows correlate for possible enteritis. Postop changes. Indeterminate lesion within the liver, follow-up suggested. 3- phase CT her liver MRI may be of benefit. Disposition Clinical Impression: Abdominal pain, Liver lesion Disposition: HOME SELF-CARE Condition: Good Instructions (If sedation given, give patient instructions): Abdominal Pain (ED) Additional Instructions: Follow-up with your primary care physician, discuss your liver lesion and further testing. Increase fluids. Rest. Avoid fatty or greasy foods. Return to the emergency department immediately for any new, worsening, or concerning sy mptoms. Is patient prescribed a controlled substance at d/c from ED?: No Referrals: Milly Mccormick DO [Primary Care Provider] - 1-2 days Time of Disposition: 16:59
[2019-07-04 15:20] LABS: Basophils % (A) 0 %; Eosinophils # (A) 0.2 k/uL (0-0.7); Eosinophils % (A) 2 %; HCT 43.2 % (34.0-46.0); HGB 14.1 gm/dL (11.4-16.0); Lymphocytes # (A) 2.7 k/uL (1.0-4.8); Lymphocytes % (A) 22 %; MCH 30.4 pg (25.0-35.0); MCHC 32.7 g/dL (31.0-37.0); MCV 92.8 fL (80.0-100.0); Mean Platelet Volume 8.7; Monocytes # (A) 0.7 k/uL (0-1.0); Monocytes % (A) 6 %; Neutrophils # (A) 8.5 k/uL (1.3-7.7); Neutrophils % (A) 68 %; Platelet Count 254 k/uL (150-450); RBC 4.65 m/uL (3.80-5.40); RDW 12.4 % (11.5-15.5); WBC 12.5 k/uL (3.8-10.6)
[2019-07-04 15:26] LABS: Albumin 4.6 g/dL (3.5-5.0); Calcium 10.4 mg/dL (8.4-10.2); Potassium 4.7 mmol/L (3.5-5.1); Total Bilirubin 0.4 mg/dL (0.2-1.3)
--- NOTE | 2019-07-04 16:12 | CT ---
EXAMINATION TYPE: CT abdomen pelvis w con DATE OF EXAM: 07/04/2019 COMPARISON: Prior CT 04/10/2013 HISTORY: RUQ pain CT DLP: 1429.1 mGycm Automated exposure control for dose reduction was used. TECHNIQUE: Helical acquisition of images from the lung bases through the pelvis have been completed. CONTRAST: Performed without Oral Contrast and with IV Contrast, patient injected with 100 mL of Isovue 300. FINDINGS: Postop changes are noted the gastroesophageal junction. There is thickening of the esophagu s at this level. LUNG BASES: No significant abnormality is appreciated. AORTA: No significant abnormality is appreciated. LIVER/GB: Low-attenuation focus posterior right lobe of the liver on axial image #21 measures approxi mately 15 mm and may been present on prior exam but not as well seen. Patient is post cholecystectomy . Liver is enlarged. Lesion within the right lobe is not as well seen on delayed images. PANCREAS: No significant abnormality is seen. SPLEEN: No significant abnormality is seen. ADRENALS: No significant abnormality is seen. KIDNEYS: No significant abnormality is seen. REPRODUCTIVE ORGANS: Uterus and adnexal structures are not seen. BOWEL: Fluid-filled loops of small bowel, small bowel wall thickening scattered within the abdomen. Diverticular change noted in the sigmoid colon. FREE AIR: No Free Air visible. ASCITES: None visible. PELVIC ADENOPATHY: None visualized. RETROPERITONEAL ADENOPATHY: No Retroperitoneal Adenopathy visible. URINARY BLADDER: No significant abnormality is seen. OSSEOUS STRUCTURES: Degenerative disc changes, facet arthropathy noted in the visualized spine. IMPRESSION: CORRELATE FOR POSSIBLE ENTERITIS. POSTOP CHANGES. INDETERMINATE LESION WITHIN THE LIVER, FOLLOW-UP CORNELIUS GGESTED. THREE-PHASE CT OR LIVER MRI MAY BE OF BENEFIT.
[2019-07-04 16:18] LABS: Appearance,Urine Clear (Clear); Bilirubin,Urine Negative (Negative); Blood,Urine Negative (Negative); Color,Urine Yellow; Glucose,Urine (UA) Negative (Negative); Ketones,Urine Negative (Negative); Leukocyte Esterase,Urine Negative (Negative); Nitrite,Urine Negative (Negative); Protein,Urine Negative (Negative); Urobilinogen,Urine <2.0 mg/dL (<2.0)
[2019-07-04 17:11] VITALS: BP 128/82; PULSE 73; TEMP 98.1
== END 2019-07-04 17:05 | disposition home or self-care (01) ==
LOC: EC 14:32
DX: K76.89 Other specified diseases of liver (principal); R10.9 Unspecified abdominal pain; D72.829 Elevated white blood cell count, unspecified; K63.89 Other specified diseases of intestine; R63.8 Other symptoms and signs concerning food and fluid intake; E11.9 Type 2 diabetes mellitus without complications; K21.9 Gastro-esophageal reflux disease without esophagitis; I10 Essential (primary) hypertension; M06.9 Rheumatoid arthritis, unspecified; E07.9 Disorder of thyroid, unspecified; Z79.84 Long term (current) use of oral hypoglycemic drugs; Z79.890 Hormone replacement therapy; Z79.899 Other long term (current) drug therapy; Z92.21 Personal history of antineoplastic chemotherapy; Z90.49 Acquired absence of other specified parts of digestive tract; Z96.652 Presence of left artificial knee joint
CPT/HCPCS: 36415; 80053; 82150; 83605; 83690; 85025; 81003; 74177; 99284; 96374; 96375; 96361; J2270; J2405; Q9967

== ENCOUNTER → 2019-07-24 | Outpatient (CLI) | payer MEDICARE, BC ==
--- NOTE | 2019-07-24 18:52 | MR ---
EXAMINATION TYPE: MR liver wo/w con DATE OF EXAM: 07/24/2019 COMPARISON: CT abdomen and pelvis July 04, 2019 HISTORY: Liver Lesion seen on prev CT CONTRAST: Standard multiplanar, multisequence MRI departmental protocol utilizing 9ml mL intravenous Gadavist g adolinium contrast. Imaging is performed of the abdomen focusing on the liver. FINDINGS: Exam noted suboptimal due to patient's inability to hold breath with respiratory motion art ifact aggravation. Liver: Liver is overall normal in size. Corresponding to CT there is round lesion measuring roughly 1 .2 x 1.1 x 1.2 cm in the posterior segment right hepatic lobe axial image 20 series 501 and coronal i mage 34 series 301 of slight T2 hyperintensity and T1 hypointensity image 55 series 603. Dynamic post contrast images show some peripheral nodular enhancement with progressive centripetal filling consist ent with small hemangioma. Patent hepatic veins draining into IVC are seen. No additional concerning solid or cystic intrahepatic masses. Gallbladder noted surgically absent. No suspicious extra hepatic or intrahepatic biliary dilatation. Patent nondilated main portal vein with branching patent right m iddle and left portal veins. No surrounding ascites. Other: Lung bases are grossly clear. The spleen, pancreas, both adrenal glands are normal in size. Th ere is subcentimeter T1 hyperintense and T2 hypointense lesion in the right kidney axial image 7 seri es 501 and coronal image 29 corresponding to 5 mm proteinaceous cyst. No hydronephrosis seen bilatera lly. No suspicious small or large bowel dilatation. Stomach poorly distended. Multilevel spurring in the spine particularly L3-L4 level where there is endplate changes and disc space narrowing present. IMPRESSION: There is 1.2 cm posterior segment right hepatic lobe lesion with dynamic postcontrast MRI imaging characteristics consistent with tiny benign hemangioma.
== END | disposition home or self-care (01) ==
LOC: RADMRIMAIN 14:37
PROVIDERS: ATTEND Family Medicine
DX: K76.89 Other specified diseases of liver (principal)
CPT/HCPCS: 74183; A9585

== ENCOUNTER 2019-08-02 07:43 | Day surgery (SDC) | payer MEDICARE, BC ==
[2019-07-28 14:47] VITALS: BMI 33.5
[~2019-08-02 07:43] MED LIST changes: -HEPARIN SODIUM,PORCINE 5,000 UNIT/ML 1 ML VIAL SQ ONE; +LIDOCAINE 1% (10MG/ML) FOR IV START INTRADERMA PRN; -LIDOCAINE 1% 20 ML VIAL (10MG/ML) FOR IV START INTRADERMA PRN; -ONDANSETRON 4 MG/2 ML VIAL IVP ONE; -ceFAZolin IN SWFI 2 GM/20 ML SYRINGE IVP ONE
[2019-08-02 08:32] VITALS: TEMP 97.8
[2019-08-02 08:38] LABS: Glucose,Whole Blood 137 mg/dL (75-99)
[2019-08-02] MEDS ORDERED: MIDAZOLAM 2 MG/2 ML VIAL IV ONE (08:40)
[2019-08-02] MEDS ORDERED: PROPOFOL 10 MG/ML 20 ML VIAL IV ONE (08:54)
--- NOTE | 2019-08-02 09:04 | P.GSHP ---
History of Present Illness H&P Date: 08/02/19 Chief Complaint: Screening colonoscopy This a 74-year-old female who presents today for screening colonoscopy. Patient denies any significant GI complaints. Past Medical History Past Medical History: Diabetes Mellitus, Eye Disorder, GERD/Reflux, Hypertension, Rheumatoid Arthritis (RA), Thyroid Disorder Additional Past Medical History / Comment(s): HX H-PYLORI , SCIATICA PAIN, Hiatal hernia, CATARACT LEFT EYE History of Any Multi-Drug Resistant Organisms: None Reported Past Surgical History: Cholecystectomy, Hernia Repair, Hysterectomy, Joint Replacement Additional Past Surgical History / Comment(s): LT TKA, COLONOSCOPY, Past Anesthesia/Blood Transfusion Reactions: No Reported Reaction Past Psychological History: Depression Smoking Status: Never smoker Past Alcohol Use History: None Reported Past Drug Use History: None Reported - Past Family History Father Family Medical History: Myocardial Infarction ([place]) Mother Family Medical History: Myocardial Infarction ([place]) Medications and Allergies Home Medications Medication Instructions Recorded Confirmed Type Certolizumab Pegol [Cimzia] 200 mg SQ Q28D 07/01/14 07/28/19 History Folic Acid 1 mg PO DAILY 07/01/14 07/28/19 History Methotrexate Sodium [Methotrexate] 10 mg PO TU 07/01/14 07/28/19 History Omeprazole [PriLOSEC] 20 mg PO DAILY 07/01/14 07/28/19 History Pravastatin Sodium [Pravachol] 40 mg PO DAILY 07/01/14 07/28/19 History metFORMIN HCL [Glucophage] 1,000 mg PO BID-W/MEALS 07/01/14 07/28/19 History Aspirin EC [Ecotrin Low Dose] 81 mg PO DAILY #30 tablet. 07/02/14 07/28/19 Rx Levothyroxine Sodium [Synthroid] 125 mcg PO DAILY 02/18/16 07/28/19 History Cyanocobalamin (Vitamin B-12) 1,000 mcg PO DAILY 08/06/17 07/28/19 History [Vitamin B-12] HYDROcodone/APAP 5-325MG [[place] 1 tab PO DAILY PRN 08/06/17 07/28/19 History 5-325] Multivit-Min/FA/Lycopen/Lutein 1 each PO DAILY 08/06/17 07/28/19 History [Centrum Silver Tablet] amLODIPine BES/OLMESARTAN MED 1 each PO DAILY 08/06/17 07/28/19 History [amLODIPine BES/OLMESARTAN MED 10-40 MG] Metoprolol Succinate [Toprol XL] 25 mg PO DAILY 07/28/19 07/28/19 History Allergies Allergy/AdvReac Type Severity Reaction Status Date / Time No Known Allergies Allergy Verified 07/28/19 14:40 Surgical - Exam Vital Signs Temp Pulse Resp BP Pulse Ox 97.8 F 64 20 143/68 98 08/02/19 08:20 08/02/19 08:20 08/02/19 08:20 08/02/19 08:20 08/02/19 08:20 - General well developed, well nourished, no distress - Eyes PERRL - ENT normal pinna - Neck no masses - Respiratory normal expansion - Cardiovascular Rhythm: regular - Abdomen Abdomen: soft, non tender Results - Labs Abnormal Lab Results - Last 24 Hours (Table) 08/02/19 Range/Units 08:21 POC Glucose (mg/dL) 137 H (75-99) mg/dL Assessment and Plan Assessment: We'll perform screening colonoscopy
[2019-08-02 09:27] VITALS: RESP 16
--- NOTE | 2019-08-02 09:38 | P.OP ---
Date of Procedure: 08/02/19 Preoperative Diagnosis: Screening colonoscopy Postoperative Diagnosis: Internal and external hemorrhoids Mild diverticulosis Procedure(s) Performed: Colonoscopy Anesthesia: MAC Surgeon: Fred Chi Pathology: other Condition: stable Disposition: PACU Description of Procedure: Patient's placed on the endoscopy table in the lateral position. She received IV sedation. Digital rectal exam was performed which revealed external hemorrhoids. The colonoscope was then placed patient anus passed throughout the entire colon. The ileocecal valve was visualized. The cecum, ascending and transverse colon appeared normal. In the descending; was mild diverticular changes. Scope was then brought back the rectum and this appeared normal. Scope was withdrawn through the anus internal and external hemorrhoids noted. Scope was withdrawn from patient.
[2019-08-02 09:43] VITALS: BP 135/64; PULSE 60
== END 2019-08-02 10:13 | disposition home or self-care (01) ==
LOC: ORWHC2ENDO 07:43
PROVIDERS: ATTEND Surgery
DX: Z12.11 Encounter for screening for malignant neoplasm of colon (principal); K57.30 Diverticulosis of large intestine without perforation or abscess without bleeding; K64.8 Other hemorrhoids; K64.4 Residual hemorrhoidal skin tags; I10 Essential (primary) hypertension; E11.9 Type 2 diabetes mellitus without complications; K21.9 Gastro-esophageal reflux disease without esophagitis; M06.9 Rheumatoid arthritis, unspecified; E07.9 Disorder of thyroid, unspecified; F32.9 Major depressive disorder, single episode, unspecified; H26.9 Unspecified cataract; Z79.890 Hormone replacement therapy; Z79.82 Long term (current) use of aspirin; Z79.899 Other long term (current) drug therapy; Z79.84 Long term (current) use of oral hypoglycemic drugs; Z90.49 Acquired absence of other specified parts of digestive tract; Z90.710 Acquired absence of both cervix and uterus; Z98.890 Other specified postprocedural states; Z86.19 Personal history of other infectious and parasitic diseases; Z87.19 Personal history of other diseases of the digestive system; Z96.652 Presence of left artificial knee joint; Z82.49 Family history of ischemic heart disease and other diseases of the circulatory system
CPT/HCPCS: J2250; J2704; G0121

== ENCOUNTER 2022-01-23 05:55 | Day surgery (SDC) | payer MEDICARE, BC ==
--- NOTE | 2022-01-22 09:00 | P.HPOR ---
History of Present Illness H&P Date: 01/22/22 Chief Complaint: Right knee pain The patient's a 76-year-old retired female who presents with progressive right knee pain despite conservative measures. She has a difficult time with any weightbearing activities. She is also having significant night symptoms. Review of Systems As per HPI Past Medical History Past Medical History: Diabetes Mellitus, GERD/Reflux, Hypertension, Rheumatoid Arthritis (RA), Thyroid Disorder Additional Past Medical History / Comment(s): HX H-PYLORI , SCIATICA PAIN Hiatal hernia History of Any Multi-Drug Resistant Organisms: None Reported Past Surgical History: Cholecystectomy, Hysterectomy, Joint Replacement Additional Past Surgical History / Comment(s): TOTAL LEFT KNEE Past Anesthesia/Blood Transfusion Reactions: No Reported Reaction Past Psychological History: Depression Past Alcohol Use History: None Reported Past Drug Use History: None Reported - Past Family History Father Family Medical History: Myocardial Infarction ([place]) Mother Family Medical History: Myocardial Infarction ([place]) Medications and Allergies Home Medications Medication Instructions Recorded Confirmed Type Certolizumab Pegol [Cimzia] 200 mg SQ Q28D 07/01/14 07/28/19 History Folic Acid 1 mg PO DAILY 07/01/14 07/28/19 History Omeprazole [PriLOSEC] 20 mg PO DAILY 07/01/14 07/28/19 History Pravastatin Sodium [Pravachol] 40 mg PO DAILY 07/01/14 07/28/19 History metFORMIN HCL [Glucophage] 1,000 mg PO BID-W/MEALS 07/01/14 07/28/19 History metHOTREXate sodium [Methotrexate] 10 mg PO TU 07/01/14 07/28/19 History Aspirin EC [Ecotrin Low Dose] 81 mg PO DAILY #30 tablet. 07/02/14 07/28/19 Rx Levothyroxine Sodium [Synthroid] 125 mcg PO DAILY 02/18/16 07/28/19 History Cyanocobalamin (Vitamin B-12) 1,000 mcg PO DAILY 08/06/17 07/28/19 History [Vitamin B-12] HYDROcodone/APAP 5-325MG [[place] 1 tab PO DAILY PRN 08/06/17 07/28/19 History 5-325] Multivit-Min/FA/Lycopen/Lutein 1 each PO DAILY 08/06/17 07/28/19 History [Centrum Silver Tablet] amLODIPine BES/OLMESARTAN MED 1 each PO DAILY 08/06/17 07/28/19 History [amLODIPine BES/OLMESARTAN MED 10-40 MG] Metoprolol Succinate [Toprol XL] 25 mg PO DAILY 07/28/19 07/28/19 History Allergies Allergy/AdvReac Type Severity Reaction Status Date / Time No Known Allergies Allergy Verified 07/28/19 14:40 Physical Examination - Knee right Appearance: effusion, varus alignment in stance Effusion grade: grade 2 Tenderness with palpation: medial Pain: throughout ROM Gait: limping ROM: extension: -10 degrees ROM: flexion: 70 degrees Strength: extension: 5/5 Strength: flexion: 5/5 Meniscal tests: medial meniscal tests: positive Results The patient is a well-developed well-nourished female proximal a 5 foot 4, 185 pounds of and morphine habitus. HEENT exam is nonfocal, neck supple. She has painless passive motion of the right hip. Straight leg raise is negative. Her distal neurovascular exam appears intact right lower extremity. 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 At this point she is quite limited because of pain related to her arthritis despite conservative measures. After thorough discussion she opts to proceed with surgery. We'll plan to proceed with right total knee arthroplasty. Risks and benefits were discussed at length in layman's terms. We will institute DVT prophylaxis postoperatively. Time with Patient: Less than 30
[2022-01-22 14:56] VITALS: BMI 30.9
[~2022-01-23 05:55] MED LIST changes: +ACETAMINOPHEN TAB 500 MG TAB PO PRN; +DEXAMETHASONE SOD PHOSPHATE 4 MG/ML 1 ML VIAL IV ONE; -LACTATED RINGERS 1,000 ML IV SCH; -LIDOCAINE 1% (10MG/ML) FOR IV START INTRADERMA PRN; +MELOXICAM 7.5 MG TAB PO PRN; +MIDAZOLAM 2 MG/2 ML VIAL IV PRN; +ONDANSETRON 4 MG/2 ML VIAL IVP ONE; +TRANEXAMIC ACID IN NACL,ISO-OS 1,000 MG in SALINE 1 100ML.BAG IVPB PRN
[2022-01-23] MEDS: LACTATED RINGERS 1,000 ML IV SCH (06:32)
[2022-01-23] MEDS ORDERED: HYDROmorphone 0.5 MG/0.5 ML SYRINGE IVP PRN ×2 (07:00→09:18)
[2022-01-23 07:07] LABS: Glucose,Whole Blood 167 mg/dL (70-110)
[2022-01-23] MEDS ORDERED: fentaNYL (PF) 50 MCG/ML 2 ML AMP IVP ONE (07:30)
[2022-01-23] MEDS ORDERED: MIDAZOLAM 2 MG/2 ML VIAL IVP ONE (07:30)
[2022-01-23] MEDS ORDERED: ceFAZolin 1,000 MG in SODIUM CHLORIDE 0.9% 1,000 ML IRRIGATION ONE (08:20)
[2022-01-23] MEDS ORDERED: LACTATED RINGERS 1,000 ML IV ONE (09:17)
--- NOTE | 2022-01-23 09:17 | P.ANPRN ---
Procedure Note - Anesthesia - Nerve Block Performed Right Adductor Canal Infusion Time Out Performed: Yes (729) Date of Procedure: 01/23/22 Procedure Start Time: 07:30 Procedure Stop Time: 07:35 Location of Patient: PreOp Indication: Acute Post-Operative Pain, Requested by Surgeon Specifically requested for management of pain by : Mohan Maki Sedation Type: Sedate with meaningful contact maintained Preparation: Sterile Prep, Sterile Dressing Position: Supine Catheter Depth at Skin (cm): 7 Catheter: Indwelling Needle Types: Pajunk Needle Gauge: 18 Ultrasound used to visualize needle placement: Yes Ultrasound used to observe medication spread: Yes Injectate: 0.5% Ropivacaine (see comment for volume) (15cc +5cc nacl pf) Blood Aspirated: No Pain Paresthesia on Injection Noted: No Resistance on Injection: Normal Image Stored and Saved: Yes Events: Uneventful and Well Tolerated
[2022-01-23] MEDS ORDERED: NALOXONE 0.4 MG/ML 1 ML VIAL IV PRN (09:18)
--- NOTE | 2022-01-23 09:18 | P.ANPRN ---
Procedure Note - Anesthesia - Nerve Block Performed Right iPack Single Time Out Performed: Yes (729) Date of Procedure: 01/23/22 Procedure Start Time: 07:36 Procedure Stop Time: 07:38 Location of Patient: PreOp Indication: Acute Post-Operative Pain, Requested by Surgeon Specifically requested for management of pain by DrChristine: Mohan Maki Sedation Type: Sedate with meaningful contact maintained Preparation: Sterile Prep Position: Supine Catheter: None Needle Types: Pajunk Needle Gauge: 21 Ultrasound used to visualize needle placement: Yes Ultrasound used to observe medication spread: Yes Injectate: 0.5% Ropivacaine (see comment for volume) (15cc +5cc nacl pf) Blood Aspirated: No Pain Paresthesia on Injection Noted: No Resistance on Injection: Normal Image Stored and Saved: Yes Events: Uneventful and Well Tolerated
--- NOTE | 2022-01-23 09:45 | P.OP ---
Date of Procedure: 01/23/22 Preoperative Diagnosis: Right knee severe tricompartmental osteoarthrosis Postoperative Diagnosis: Same Procedure(s) Performed: Right total knee arthroplastycementedposterior stabilized Implants: Depuy Attune size 5 cemented femoral component, size 4 cemented tibial component, 9 mm articular surface, 35 mm cemented patellar component. This is a posterior stabilized implant. Anesthesia: regional, spinal Surgeon: Mohan Maki Truck Caterer #1: Gilmar Guevara Estimated Blood Loss (ml): 50 Pathology: other (Bone fragments) Condition: stable Disposition: PACU Indications for Procedure: The patient is a 76-year-old female who presents with progressive right knee pain secondary to osteoarthrosis despite conservative measures. A discussion of the risks and benefits of operative intervention versus continued conservative measures was made with patient. She opted to proceed with surgery. Operative risks to include infection, neurovascular, possible component loosening/failure need for subsequent procedures was discussed. Informed consent was obtained. Operative Findings: As below Description of Procedure: The patient was brought to the operating room, and after induction of spinal anesthesia the right lower extremity was prepped and draped in a normal fashion. The tourniquet was inflated to 270 mm marker. A longitudinal incision extending 3 finger breaths above the superior pole of patella extending to the medial aspect the tibial tubercle was then made. The skin and subcutaneous tissues were divided sharply. Electrocautery was used for hemostasis. A medial parapatellar arthrotomy was performed. The medial soft tissues to include the superficial and deep portions of the medial collateral ligament were elevated subperiosteally. The patella was everted. A portion of the retropatellar fat pad was excised sharply. The anterior cruciate ligament was sacrificed. Blunt retractors were placed. A starting hole was made in the distal femur 1 cm anterior to the posterior cruciate ligament origin. An intramedullary femoral guide was then inserted planning on 5 valgus distal cut with 9 mm distal resection. The cutting block was pinned in place. The distal cut was then made. The posterior referencing sizing guide was utilized. I felt size 5 was most appropriate. 3 of external rotation was built into the system and verified off the trans-epicondylar axis and the posterior condyles. The cutting block was pinned in place. The anterior, posterior, and chamfer cuts then made. Bone fragments were removed. The intercondylar guide was placed and the notch cut was made with a sagittal saw. The bone block was removed in one fragment. The trial component was then placed. There is good anterior to posterior and medial to lateral fit. The distal peg holes were drilled. The trial component was removed. Attention was then paid towards preparing the proximal tibia. An extra medullary guide was utilized in line with the tibial shaft and second metatarsal distally. I planned on 2 mm resection from the medial compartment. The cutting block was pinned in place. The proximal tibial cut was then made. The bone was removed in one fragment. The remnants of the medial and lateral menisci were excised at the capsular junction with electrocautery. The tibia sized most appropriately at size 4. The trial femoral and tibial components were placed along with a 9 mm articular surface. I was able to obtain full flexion and extension with internal and external rotation. After several flexion and extension cycles, the tibial rotation was marked with electrocautery line with the medial one third of the tibial tubercle. Attention was then paid towards preparing the patella. A patella reamer was utilized taking stem to 14 mm of bone stock. A good flush cut was made. The patella sized most appropriately 35 mm. The peg holes were drilled. The trial components placed. I had good patellofemoral tracking with no hands technique. The trial components were then removed. The tibia was prepared in the appropriate rotation with appropriate drill and keel punch. The posterior osteophytes were removed with a curved osteotome. The flexion and extension gaps were checked and felt to be symmetric at 9 mm. A trial components were then removed. The bony surfaces were prepared with pulsatile lavage and dried. The tibial component was then cemented place was fully seated. Excess cement was removed. The femoral component cemented place and was fully seated. Excess cement was removed. The trial 9 mm articular surface was placed and the knee was put in full extension. The patella component was cemented place. After the cement had sufficiently hardened, the knee was again taken through a range of motion. Again I was able to obtain full flexion and extension with varus and valgus stress. The trial 9 mm articular surface was removed and the final one inserted. This was fully seated. Care was taken to avoid any soft tissue interposition. Pulsatile lavage was again utilized. The medial parapatellar arthrotomy was closed with #2 Ethibond suture. The tourniquet was deflated with approximately 60 minutes total tourniquet time. Final hemostasis was obtained with the cautery. There was minimal bleeding therefore a deep drain was not placed. The subcutaneous tissues were reapproximated with interrupted 2-0 Vicryl sutures. The skin was reapproximated with 3-0 subcuticular strata fix suture. Skin tape and adhesive was applied. A sterile dressing was applied. The patient was awoken from sedation and transferred to recovery room in good condition. Blood loss was estimated at 50 mL. No complications were incurred. Sponge and needle counts were correct at the end of the case. Gilmar HORNE assisted during the major components of this case to include exposure, bone resection, implantation, and closure.
[2022-01-23] MEDS ORDERED: ROPIVACAINE 0.2%-NS ON-Q PUMP 1,090 MG, EMPTY PAIN BALL 1 EACH MISCELLANE PRN (10:20)
--- NOTE | 2022-01-23 10:24 | XR ---
EXAMINATION TYPE: XR knee limited RT DATE OF EXAM: 01/23/2022 COMPARISON: NONE TECHNIQUE: Two views submitted HISTORY: Post op FINDINGS: There is a prosthetic knee in near anatomic alignment. There is soft tissue edema and emphysema. IMPRESSION: 1. Postoperative change. Appears in near-anatomic alignment
[2022-01-23 11:41] LABS: Glucose,Whole Blood 152 mg/dL (70-110)
[2022-01-23] MEDS ORDERED: DEXTROSE 50% SYRINGE 50 ML IVP PRN ×2 (14:11)
[2022-01-23 16:19] LABS: Glucose,Whole Blood 238 mg/dL (70-110)
[2022-01-23] MEDS: INSULIN ASPART (NovoLOG) 100 UNIT/ML VIAL SQ SCH ×2 (17:32→20:54)
[2022-01-23] MEDS: PANTOPRAZOLE 40 MG/10 ML VIAL IVP SCH (17:36)
[2022-01-23 20:22] LABS: Glucose,Whole Blood 228 mg/dL (70-110)
[2022-01-23] MEDS: SENNOSIDES-DOCUSATE SODIUM 1 EACH TAB PO SCH (20:52)
[2022-01-23] MEDS: METOPROLOL SUCCINATE (ER) 25 MG TAB.ER.24H PO SCH (20:52)
[2022-01-23] MEDS: HYDROcodone/APAP 5-325MG 1 EACH TAB PO PRN (22:03)
[2022-01-24] MEDS: HYDROmorphone 0.5 MG/0.5 ML SYRINGE IVP PRN ×2 (05:44→11:30)
[2022-01-24] MEDS: LEVOTHYROXINE 125 MCG TAB PO SCH (05:51)
[2022-01-24 07:22] LABS: Glucose,Whole Blood 166 mg/dL (70-110)
[2022-01-24] MEDS: LACTATED RINGERS 1,000 ML IV SCH (07:37)
[2022-01-24] MEDS: PANTOPRAZOLE 40 MG/10 ML VIAL IVP SCH (07:42)
[2022-01-24] MEDS: INSULIN ASPART (NovoLOG) 100 UNIT/ML VIAL SQ SCH ×4 (07:42→20:05)
[2022-01-24] MEDS: RIVAROXABAN 10 MG TAB PO SCH (07:43)
[2022-01-24] MEDS: HYDROcodone/APAP 7.5-325MG 1 EACH TAB PO PRN (07:43)
[2022-01-24 08:57] LABS: Basophils # (A) 0.02 X 10*3/uL (0.00-0.10); Basophils % (A) 0.2 %; Eosinophils # (A) 0.03 X 10*3/uL (0.04-0.35); Eosinophils % (A) 0.3 %; HCT 32.8 % (37.2-46.3); HGB 10.7 g/dL (12.0-15.0); Immature Grans, Automated 0.5 %; Lymphocytes % (A) 26.4 %; MCHC 32.6 g/dL (32.0-37.0); MCV 88.9 fL (80.0-97.0); Mean Platelet Volume 11.4 fL (9.5-12.2); Monocytes # (A) 1.09 X 10*3/uL (0.20-1.00); Monocytes % (A) 12.5 %; NRBC Per 100 WBC 0 /100 WBCS (0.0-0.0); Neutrophils # (A) 5.23 X 10*3/uL (1.80-7.70); Neutrophils % (A) 60.1 %; Platelet Count 232 X 10*3/uL (140-440); RBC 3.69 X 10*6/uL (4.10-5.20); RDW 13.2 % (11.5-14.5); WBC 8.71 X 10*3/uL (4.50-10.00)
--- NOTE | 2022-01-24 09:48 | P.PN ---
Subjective Progress Note Date: 01/24/22 Principal diagnosis: Right knee osteoarthritis Patient was seen at bedside this morning resting completely lying semirecumbent position. Patient says she has been icing her knee. Patient says she has urinated several times since surgery yesterday. Patient says she has been up and walking a little bit using walker. Patient says she does have walker at home. Patient says she is having some knee pain on the medial side as well as behind her knee. Patient says she has been doing exercises while resting in bed. Patient says she does live at home with her grandson. Patient says her grandson is not around very much. Patient says she would like to go to rehab upon discharge from the hospital. Patient says she has not had a bowel movement since surgery. Patient says she has been eating meals since surgery. Patient denies chest pain, fever, chest breath, nausea, vomiting, change in vision, loss of bowel/bladder control. Objective - Vital Signs Vital signs: Vital Signs Temp 98.5 F 01/24/22 08:00 Pulse 68 01/24/22 08:00 Resp 17 01/24/22 08:00 BP 118/63 01/24/22 08:00 Pulse Ox 92 L 01/24/22 08:00 FiO2 Intake & Output 01/23/22 01/24/22 01/24/22 18:59 06:59 18:59 Intake Total 1651 Output Total 300 Balance 1351 Weight 81.3 kg Intake: IV 1651 Output: Urine 250 Estimated Blood Loss 50 Other: # Voids 2 - Exam Right knee: Incision is clean, dry, and intact. The exofin fusion tape is in good condition. There is minimal soft tissue swelling and ecchymosis surrounding the medial and lateral aspects of the incision. Calf is soft, no tenderness with palpation. Plantar flexion, dorsiflexion, EHL, FHL are intact. Sensory exam to light touch throughout the extremity is intact, dorsal pedis pulses 2+. - Labs CBC & Chem 7: 01/24/22 06:13 Labs: Abnormal Lab Results - Last 24 Hours (Table) 01/23/22 01/23/22 01/23/22 Range/Units 11:36 15:37 16:17 RBC (4.10-5.20) X 10*6/uL Hgb (12.0-15.0) g/dL Hct (37.2-46.3) % Monocytes # (0.20-1.00) X 10*3/uL Eosinophils # (0.04-0.35) X 10*3/uL POC Glucose (mg/dL) 152 H 238 H (70-110) mg/dL Hemoglobin A1c 7.4 H (0.0-6.0) % 01/23/22 01/24/22 01/24/22 Range/Units 20:21 06:13 07:21 RBC 3.69 L (4.10-5.20) X 10*6/uL Hgb 10.7 L (12.0-15.0) g/dL Hct 32.8 L (37.2-46.3) % Monocytes # 1.09 H (0.20-1.00) X 10*3/uL Eosinophils # 0.03 L (0.04-0.35) X 10*3/uL POC Glucose (mg/dL) 228 H 166 H (70-110) mg/dL Hemoglobin A1c (0.0-6.0) % Assessment and Plan Assessment: Right knee osteoarthritis -Postop day #1 status post right total knee arthroplasty Plan: 1. Right knee osteoarthritis - right total knee arthroplasty performed yesterday, 01/23/2022. Patient stable at bedside this morning. Plan for discharge to rehab on 01/26/2022 2. Appreciate medical management 3. Pain management - [place]; IV meds only if necessary 4. DVT prophylaxis - Xarelto 5. GI prophylaxis - senna 6. PT/OT - weightbearing as tolerated with walker 7. Encourage incentive spirometer use 8. Discharge planning - discharge to rehab on 01/26/2022 Time with Patient: Less than 30
[2022-01-24 11:34] LABS: Glucose,Whole Blood 137 mg/dL (70-110)
--- NOTE | 2022-01-24 13:51 | P.PN ---
Progress Note - Text Progress Note Date: 01/24/22 patient was seen and evaluated at bedside. Status post postoperative day 1 for right side total knee arthroplasty patient had adductor canal catheter for postop pain control. Patient rated pain at rest 5 out of 10 in severity. Patient describes pain is aching, throbbing type on the sides of the knee and back of the knee. Patient started walking with support. With activity patient pain levels are 7-8 out of 10 in severity. With the help of oral pain medications pain levels are tolerable. Patient denied any weakness/ numbness in lower extremities. patient denied any fever, pain over the catheter site. Physical exam: Patient vital signs stable Patient is alert awake oriented 3 responding to all questions appropriately Examination of the catheter site showed dressing intact, no leaking fluid around the catheter, no redness, no tenderness over the catheter insertion area. plan: status post postoperative day 1 for right side total knee arthroplasty with adductor canal catheter for pain control. Patient was discussed to continue the medication at the rate of 8 mL per hour until the pump is completely empty and instructed the patient how to discontinue the catheter.
[2022-01-24 16:43] LABS: Glucose,Whole Blood 189 mg/dL (70-110)
[2022-01-24 20:05] LABS: Glucose,Whole Blood 143 mg/dL (70-110)
[2022-01-24] MEDS: HYDROcodone/APAP 5-325MG 1 EACH TAB PO PRN (20:07)
[2022-01-24] MEDS: METOPROLOL SUCCINATE (ER) 25 MG TAB.ER.24H PO SCH (20:07)
[2022-01-24] MEDS: SENNOSIDES-DOCUSATE SODIUM 1 EACH TAB PO SCH (20:07)
--- NOTE | 2022-01-25 01:41 | P.CONS ---
History of Present Illness - Reason for Consult Consult date: 01/24/22 Medical management - Chief Complaint Status post right total knee arthroplasty - History of Present Illness Patient is a 76-year-old female with a known history of hypertension, diabetes type 2, GERD, osteoarthritis and rheumatoid arthritis and hypothyroidism, depression was admitted to the hospital for elective right total knee arthroplasty. Patient is postoperative 1. Currently pain is controlled and is on adductor canal catheter for pain control. Denied any complaints of chest pain or shortness of breath. No fever no chills. No complaints of nausea or vomiting. Patient did not have any bowel movement today. Laboratory data showed WBC 8.7 hemoglobin 10.7 and platelets 232, blood sugar is 166. Review of Systems Constitutional: Patient denies any fever or chills . no Generalized weakness. Abdomen: Patient denied any nausea or vomiting or abd. pain Cardiovascular: Patient denies any chest pain or short of breath no palpitations. Respiratory: patient denied any cough is from production. No shortness of breath Neurologic: Patient denied any numbness or tingling headache. Musculoskeletal: Patient denies any complaints of joint swelling or deformity. Skin: Negative Psychiatric: Negative Endocrine: No heat or cold intolerance. No recent weight gain. Genitourinary: No dysuria or hematuria. All other 14 point ROS negative except the above Past Medical History Past Medical History: Diabetes Mellitus, GERD/Reflux, Hypertension, Rheumatoid Arthritis (RA), Thyroid Disorder Additional Past Medical History / Comment(s): HX H-PYLORI , SCIATICA PAIN, Hiatal hernia,steroids November/Dec 2021 History of Any Multi-Drug Resistant Organisms: None Reported Past Surgical History: Cholecystectomy, Hysterectomy, Joint Replacement Additional Past Surgical History / Comment(s): TOTAL LEFT KNEE,hiatal hernia repair Past Anesthesia/Blood Transfusion Reactions: No Reported Reaction Additional Past Anesthesia/Blood Transfusion Reaction / Comm: no hx blood transfusion Past Psychological History: Depression Smoking Status: Never smoker Past Alcohol Use History: None Reported Past Drug Use History: None Reported - Past Family History Father Family Medical History: Myocardial Infarction ([place]) Mother Family Medical History: Myocardial Infarction ([place]) Medications and Allergies Home Medications Medication Instructions Recorded Confirmed Type Certolizumab Pegol [Cimzia] 200 mg SQ Q28D 07/01/14 01/23/22 History Pravastatin Sodium [Pravachol] 40 mg PO DAILY 07/01/14 01/23/22 History metFORMIN HCL [Glucophage] 1,000 mg PO BID-W/MEALS 07/01/14 01/23/22 History Levothyroxine Sodium [Synthroid] 125 mcg PO QAM 02/18/16 01/23/22 History Metoprolol Succinate [Toprol XL] 25 mg PO HS 07/28/19 01/23/22 History amLODIPine BESYLATE/BENAZEPRIL 1 cap PO 1200 01/22/22 01/23/22 History [Lotrel 5-40 MG] Allergies Allergy/AdvReac Type Severity Reaction Status Date / Time No Known Allergies Allergy Verified 01/23/22 06:23 Physical Exam Vitals: Vital Signs Temp Pulse Pulse Resp BP Pulse Ox 01/24/22 08:00 98.5 F 68 17 118/63 92 L 01/24/22 02:32 97.9 F 47 L 16 111/46 96 01/23/22 20:09 70 17 01/23/22 20:08 98.5 F 70 17 112/62 95 01/23/22 15:58 97.9 F 63 15 101/56 94 L 01/23/22 14:00 97.6 F 40 L 16 110/59 94 L 01/23/22 13:20 121/65 96 Intake and Output 01/23/22 01/24/22 01/24/22 22:59 06:59 14:59 Output Total 250 Balance -250 Output: Urine 250 Other: # Voids 2 Weight 81.3 kg PHYSICAL EXAMINATION: Patient is lying in the bed comfortably, no acute distress, awake alert and oriented.. HEENT: Normocephalic. Neck is supple. Pupils reactive. Nostrils clear. Oral cavity is moist. Neck reveals no JVD, carotid bruits, or thyromegaly. CHEST EXAMINATION: Trachea is central. Symmetrical expansion. Lung morillo clear to auscultation and percussion. CARDIAC: Normal S1, S2 with no gallops. No murmurs ABDOMEN: Soft. Bowel sounds present. Nontender. No organomegaly. No abdominal bruits. Extremities: reveal no edema. No clubbing or cyanosis Neurologically awake, alert, oriented x3 with well-coordinated movements. No focal deficits noted Skin: No rash or skin lesions. Psychiatric: Coperative. Nonsuicidal, Musculoskeletal: No joint swelling or deformity. Normal range of motion. Results CBC & Chem 7: 01/24/22 06:13 Labs: Abnormal Lab Results - Last 24 Hours (Table) 01/23/22 01/23/22 01/23/22 Range/Units 15:37 16:17 20:21 RBC (4.10-5.20) X 10*6/uL Hgb (12.0-15.0) g/dL Hct (37.2-46.3) % Monocytes # (0.20-1.00) X 10*3/uL Eosinophils # (0.04-0.35) X 10*3/uL POC Glucose (mg/dL) 238 H 228 H (70-110) mg/dL Hemoglobin A1c 7.4 H (0.0-6.0) % 01/24/22 01/24/22 01/24/22 Range/Units 06:13 07:21 11:33 RBC 3.69 L (4.10-5.20) X 10*6/uL Hgb 10.7 L (12.0-15.0) g/dL Hct 32.8 L (37.2-46.3) % Monocytes # 1.09 H (0.20-1.00) X 10*3/uL Eosinophils # 0.03 L (0.04-0.35) X 10*3/uL POC Glucose (mg/dL) 166 H 137 H (70-110) mg/dL Hemoglobin A1c (0.0-6.0) % Assessment and Plan Assessment: Status post right total knee arthroplasty postoperative day 1 Postoperative hypotension. Improving now. Sinus bradycardia asymptomatic. Hypertension History of rheumatoid arthritis on certolizumab q. 28 days. Hypothyroidism Diabetes type 2 [id number]-pjoldlbbn GERD Depression DVT prophylaxis Plan: Patient will be continued pain management, bowel regimen and incentive spirometry. Patient is on Xarelto for anticoagulation at this time. Blood pressure medications on hold due to hypotension. Continue with levothyroxine and insulin sliding scale for better blood sugar control. We will continue to follow and further recommendations based on the clinical course. Thank you for your consult. Time with Patient: Greater than 30
[2022-01-25] MEDS: LACTATED RINGERS 1,000 ML IV SCH (06:56)
[2022-01-25 06:57] LABS: Glucose,Whole Blood 166 mg/dL (70-110)
[2022-01-25] MEDS: RIVAROXABAN 10 MG TAB PO SCH (07:04)
[2022-01-25] MEDS: LEVOTHYROXINE 125 MCG TAB PO SCH (07:05)
[2022-01-25] MEDS: INSULIN ASPART (NovoLOG) 100 UNIT/ML VIAL SQ SCH ×4 (07:05→20:43)
[2022-01-25] MEDS: PANTOPRAZOLE 40 MG/10 ML VIAL IVP SCH (07:05)
--- NOTE | 2022-01-25 09:38 | P.PN ---
Subjective Progress Note Date: 01/25/22 Principal diagnosis: Right knee osteoarthritis Patient was seen at bedside this morning resting comfortably sitting up in chair with legs elevated. Patient says she has been icing her knee. Patient says she has urinated several times since surgery. Patient says she has been up and walking a little bit using walker. Patient says she does have walker at home. Patient says she is having some knee pain on the medial side as well as behind her knee. Patient says she has been doing exercises while resting in bed. Patient says she does live at home with her grandson. Patient says her grandson is not around very much. Patient says she would like to go to rehab upon disch arge from the hospital. Patient says she has not had a bowel movement since surgery, but has been passing gas. Patient says she has been eating meals since surgery. Patient denies chest pain, fever, chest breath, nausea, vomiting, change in vision, loss of bowel/bladder control. Objective - Vital Signs Vital signs: Vital Signs Temp 98.5 F 01/25/22 07:39 Pulse 55 L 01/25/22 07:39 Resp 17 01/25/22 07:39 BP 118/59 01/25/22 07:39 Pulse Ox 96 01/25/22 07:39 FiO2 Intake & Output 01/24/22 01/25/22 01/25/22 18:59 06:59 18:59 Output Total 2 Balance -2 Output: Urine 2 Other: Voiding Method Toilet # Voids 3 - Exam Right knee: Incision is clean, dry, and intact. The exofin fusion tape is in good condition. There is minimal soft tissue swelling and ecchymosis surrounding the medial and lateral aspects of the incision. Calf is soft, no tenderness with palpation. Plantar flexion, dorsiflexion, EHL, FHL are intact. Sensory exam to light touch throughout the extremity is intact, dorsal pedis pulses 2+. - Labs CBC & Chem 7: 01/24/22 06:13 Labs: Abnormal Lab Results - Last 24 Hours (Table) 01/24/22 01/24/22 01/24/22 Range/Units 11:33 16:42 20:01 POC Glucose (mg/dL) 137 H 189 H 143 H (70-110) mg/dL 01/25/22 Range/Units 06:56 POC Glucose (mg/dL) 166 H (70-110) mg/dL Assessment and Plan Assessment: Right knee osteoarthritis -Postop day #2 status post right total knee arthroplasty Plan: 1. Right knee osteoarthritis - right total knee arthroplasty performed 01/23/2022. Patient stable at bedside this morning. Plan for discharge to rehab r, 01/26/2022 2. Appreciate medical management 3. Pain management - [place]; IV meds only if necessary 4. DVT prophylaxis - Xarelto 5. GI prophylaxis - senna 6. PT/OT - weightbearing as tolerated with walker 7. Encourage incentive spirometer use 8. Discharge planning - discharge to rehab r, 01/26/2022 Time with Patient: Less than 30
[2022-01-25 11:35] LABS: Glucose,Whole Blood 188 mg/dL (70-110)
[2022-01-25 16:58] LABS: Glucose,Whole Blood 141 mg/dL (70-110)
[2022-01-25 20:37] LABS: Glucose,Whole Blood 193 mg/dL (70-110)
[2022-01-25] MEDS: SENNOSIDES-DOCUSATE SODIUM 1 EACH TAB PO SCH (20:43)
[2022-01-25] MEDS: METOPROLOL SUCCINATE (ER) 25 MG TAB.ER.24H PO SCH (20:43)
--- NOTE | 2022-01-26 02:37 | P.PN ---
Subjective Progress Note Date: 01/25/22 Patient is a 76-year-old female with a known history of hypertension, diabetes type 2, GERD, osteoarthritis and rheumatoid arthritis and hypothyroidism, depression was admitted to the hospital for elective right total knee arthroplasty. Patient is postoperative 1. Currently pain is controlled and is on adductor canal catheter for pain control. Denied any complaints of chest pain or shortness of breath. No fever no chills. No complaints of nausea or vomiting. Patient did not have any bowel movement today. Laboratory data showed WBC 8.7 hemoglobin 10.7 and platelets 232, blood sugar is 166. 01/25/2022 Patient is currently resting in bed. Awake alert and oriented x3. Right knee pain is better. Patient is able to participate in physical therapy. Continue with pain management and anticipate discharge to rehab tomorrow. Otherwise patient denied any complaints of fever or chills. No nausea vomiting abdominal diarrhea. Tolerating oral diet. Patient did not have any bowel movement today. No cough or sputum production. Blood sugar is better controlled. Current medications reviewed. Objective - Vital Signs Vital signs: Vital Signs Temp 98.3 F 01/25/22 18:24 Pulse 58 L 01/25/22 20:38 Resp 17 01/25/22 18:24 BP 110/64 01/25/22 18:24 Pulse Ox 94 L 01/25/22 18:24 FiO2 Intake & Output 01/25/22 01/25/22 01/26/22 06:59 18:59 06:59 Other: Voiding Method Toilet # Voids 3 3 - Exam PHYSICAL EXAMINATION: Patient is lying in the bed comfortably, no acute distress, awake alert and oriented.. HEENT: Normocephalic. Neck is supple. Pupils reactive. Nostrils clear. Oral cavity is moist. Neck reveals no JVD, carotid bruits, or thyromegaly. CHEST EXAMINATION: Trachea is central. Symmetrical expansion. Lung morillo clear to auscultation and percussion. CARDIAC: Normal S1, S2 with no gallops. No murmurs ABDOMEN: Soft. Bowel sounds present. Nontender. No organomegaly. No abdominal bruits. Extremities: reveal no edema. No clubbing or cyanosis Neurologically awake, alert, oriented x3 with well-coordinated movements. No focal deficits noted Skin: No rash or skin lesions. Psychiatric: Coperative. Nonsuicidal, Musculoskeletal: No joint swelling or deformity. Normal range of motion. - Labs CBC & Chem 7: 01/24/22 06:13 Labs: Abnormal Lab Results - Last 24 Hours (Table) 01/25/22 01/25/22 01/25/22 Range/Units 06:56 11:34 16:57 POC Glucose (mg/dL) 166 H 188 H 141 H (70-110) mg/dL 01/25/22 Range/Units 20:36 POC Glucose (mg/dL) 193 H (70-110) mg/dL Assessment and Plan Assessment: Status post right total knee arthroplasty postoperative day 2 Postoperative hypotension. Improving now. Sinus bradycardia asymptomatic. Hypertension History of rheumatoid arthritis on certolizumab q. 28 days. Hypothyroidism Diabetes type 2 [id number] GERD Depression DVT prophylaxis Plan: Patient will be continued pain management, bowel regimen and incentive spirometry. Patient is on Xarelto for anticoagulation at this time. Blood pressure medications on hold due to hypotension. Continue with levothyroxine and insulin sliding scale for better blood sugar control. We will continue to follow and further recommendations based on the clinical course.
[2022-01-26] MEDS: LACTATED RINGERS 1,000 ML IV SCH (05:22)
[2022-01-26] MEDS: LEVOTHYROXINE 125 MCG TAB PO SCH (05:34)
[2022-01-26 07:06] LABS: Glucose,Whole Blood 144 mg/dL (70-110)
[2022-01-26] MEDS: INSULIN ASPART (NovoLOG) 100 UNIT/ML VIAL SQ SCH ×2 (07:24→12:30)
[2022-01-26] MEDS: RIVAROXABAN 10 MG TAB PO SCH (07:32)
[2022-01-26] MEDS: PANTOPRAZOLE 40 MG/10 ML VIAL IVP SCH (07:32)
--- NOTE | 2022-01-26 09:49 | P.PN ---
Subjective Progress Note Date: 01/26/22 Principal diagnosis: Right knee osteoarthritis Patient was seen at bedside this morning resting comfortably sitting up in chair. Patient says she has been icing her knee. Patient says she has urinated several times since surgery. Patient says she has been up and walking a little bit using walker. Patient says she does have walker at home. Patient says she is having some knee pain on the medial side as well as behind her knee. Patient says she has been doing exercises while resting in bed. Patient says she does live at home with her grandson. Patient says her grandson is not around very much. Patient says she would like to go to rehab upon discharge from the [facility]. Patient says she did have a bowel movement yesterday. Patient says she has been eating meals since surgery. Patient denies chest pain, fever, chest breath, nausea, vomiting, change in vision, loss of bowel/bladder control. Objective - Vital Signs Vital signs: Vital Signs Temp 98.0 F 01/26/22 08:00 Pulse 62 01/26/22 08:00 Resp 14 01/26/22 08:00 BP 126/75 01/26/22 08:00 Pulse Ox 97 01/26/22 08:00 FiO2 Intake & Output 01/25/22 01/26/22 01/26/22 18:59 06:59 18:59 Intake Total 300 Balance 300 Intake: Oral 300 Other: Voiding Method Toilet # Voids 3 2 # Bowel Movements 0 - Exam Right knee: Incision is clean, dry, and intact. The exofin fusion tape is in good condition. There is minimal soft tissue swelling and ecchymosis surrounding the medial and lateral aspects of the incision. Calf is soft, no tenderness with palpation. Plantar flexion, dorsiflexion, EHL, FHL are intact. Sensory exam to light touch throughout the extremity is intact, dorsal pedis pulses 2+. - Labs CBC & Chem 7: 01/24/22 06:13 Labs: Abnormal Lab Results - Last 24 Hours (Table) 01/25/22 01/25/22 01/25/22 Range/Units 11:34 16:57 20:36 POC Glucose (mg/dL) 188 H 141 H 193 H (70-110) mg/dL 01/26/22 Range/Units 07:04 POC Glucose (mg/dL) 144 H (70-110) mg/dL Assessment and Plan Assessment: Right knee osteoarthritis -Postop day #3 status post right total knee arthroplasty Plan: 1. Right knee osteoarthritis - right total knee arthroplasty performed 01/23/2022. Patient stable at bedside this morning. Plan for discharge to re hab today, 01/26/2022 2. Appreciate medical management 3. Pain management - [place]; IV meds only if necessary 4. DVT prophylaxis - Xarelto; to SNF with Eliquis - 2.5mg daily x 2 weeks 5. GI prophylaxis - senna; to SNF with Colace 6. PT/OT - weightbearing as tolerated with walker 7. Encourage incentive spirometer use 8. Discharge planning - discharge to rehab today, 01/26/2022 Time with Patient: Less than 30
--- NOTE | 2022-01-26 09:57 | P.DS ---
Providers Date of admission: 01/23/2022 Expected date of discharge: 01/26/22 Attending physician: Mohna Maki Consults: 01/23/22 09:21 Consult Physician Routine Consulting Provider: Rivera Mcelroy Consult Reason/Comments: Medical Management s/p right total knee arthroplasty Do you want consulting provider notified?: Yes Primary care physician: Milly Mccormick Hospital Course: Date of admission: 01/23/2022 Date of discharge: 01/26/2022 Admission diagnosis: Right knee osteoarthritis Discharge diagnosis: Same Attending physician: Dr. Maki Surgical procedures: Right total knee arthroplasty Brief history: Patient is a 76-year-old female with a history of progressive primary right knee osteoarthritis. At this point patient has failed conservative treatment measures and has opted to proceed with a elective right total knee arthroplasty. Hospital course: Details of patient's surgery can be found in operative report. Patient tolerated the procedure well and was subsequently transported to orthopedic floor. Patient's orthopeidc and medical care was provided daily. Patient had daily laboratory tests performed for evaluation of overall blood counts. Patient had daily physical therapy to include strengthening range of motion as well as education with walker ambulation. Patient was treated with Xarelto for their postoperative DVT prophylaxis during their inpatient stay. Patient was noted to have a relatively uneventful postoperative course. Patient reported satisfactory pain control with oral pain medications by postoperative day 3. Patient showed satisfactory progress with physical therapy. Patient moved steadily through the program and had no difficulty meeting the goals by postoperative day 3. Given patient's otherwise satisfactory course and having met physical therapy goals, plan is to discharge patient to rehab on postoperative day 3. Discharge condition/disposition: Patient will be discharged to rehab in stable condition. Discharge medications: Instructions are given on resumption of patient's normal daily medications per primary care recommendation, in addition patient will be prescribed [place] 7.5 mg/325 mg; Colace; Eliquis 2.5mg BID x 2 weeks. Discharge instructions: 1. Wound care and infection precautions, keep incision dry and covered while showering, no lotions, creams, moisturizers. No soaking, tubs, pools, hottubs. Do not scrub over the incision. 2. Weight-bear as tolerated with walker / cane until follow-up. 3. Ice and elevate when necessary. Do not exceed 20 minutes per hour with ice pack. 4. Utilize compression sleeve until seen at first follow up appointment. 5. Visiting nursing care. 6. Home physical therapy including home CPM. 7. Pain meds and anticoagulants per prescription. 8. Pain medication has potential to cause constipation. Increase oral fluid and fiber intake. Contact primary care provider if you have not had a bowel movement within 48 hours after discharge 9. No anti-inflammatory medication until discussed at first post operative visit, this including Motrin, Aleve, Mobic, Diclofenac. 10. Follow up in office at 2 weeks postop with Trung Guzmán PA-C / Gilmar Guevara PA-C 11. Follow up with your primary care doctor 7-10 days after discharge. 12. Contact [facility] with any questions, . Keep incision clean, dry, intact. While showering, cover fusion tape with Saran wrap. Keep the fusion tape on until follow-up appointment in office in 2 weeks. Medications: Darrington 7.5 mg/325 mg; Colace; Eliquis 2.5mg BID x 2 weeks. Assessment: Right knee osteoarthritis Procedures: Right total knee arthroplasty Patient Condition at Discharge: Good Plan - Discharge Summary Discharge Rx Participant: No New Discharge Prescriptions: New Apixaban [Eliquis] 2.5 mg PO BID #60 tab HYDROcodone/APAP 7.5-325MG [[place] 7.5] 1 each PO Q6HR PRN #32 tab PRN Reason: Pain Docusate [Colace] 100 mg PO DAILY #30 capsule No Action Certolizumab Pegol [Cimzia] 200 mg SQ Q28D metFORMIN HCL [Glucophage] 1,000 mg PO BID-W/MEALS Pravastatin Sodium [Pravachol] 40 mg PO DAILY Levothyroxine Sodium [Synthroid] 125 mcg PO QAM Metoprolol Succinate [Toprol XL] 25 mg PO HS amLODIPine BESYLATE/BENAZEPRIL [Lotrel 5-40 MG] 1 cap PO 1200 Discharge Medication List Certolizumab Pegol [Cimzia] 200 mg SQ Q28D 07/01/14 [History] Pravastatin Sodium [Pravachol] 40 mg PO DAILY 07/01/14 [History] metFORMIN HCL [Glucophage] 1,000 mg PO BID-W/MEALS 07/01/14 [History] Levothyroxine Sodium [Synthroid] 125 mcg PO QAM 02/18/16 [History] Metoprolol Succinate [Toprol XL] 25 mg PO HS 07/28/19 [History] amLODIPine BESYLATE/BENAZEPRIL [Lotrel 5-40 MG] 1 cap PO 1200 01/22/22 [History] Apixaban [Eliquis] 2.5 mg PO BID #60 tab 01/26/22 [Rx] Docusate [Colace] 100 mg PO DAILY #30 capsule 01/26/22 [Rx] HYDROcodone/APAP 7.5-325MG [[place] 7.5] 1 each PO Q6HR PRN #32 tab 01/26/22 [Rx] Follow up Appointment(s)/Referral(s): Gilmar Guevara, PAC [PHYSICIAN LIBRARIAN HELPER] - 2 Weeks [facility],Equipment [NON-STAFF] - 1 Week (Call [facility] when you get home and they will deliver your CPM machine) Patient Instructions/Handouts: Knee Replacement (DC) Activity/Diet/Wound Care/Special Instructions: Orthopedic Discharge Instructions: 1. Wound care and infection precautions, keep incision dry and covered while showering, no lotions, creams, moisturizers. No soaking, pools, hot tubs. Do not scrub over incision. 2. Weight-bear as tolerated with walker / cane until follow-up. 3. Ice and elevate when necessary. Do not exceed 20 minutes per hour with ice pack. 4. Utilize compression sleeve until seen at first follow up appointment. 5. Pain meds and anticoagulants per prescription. 6. Pain medication has potential to cause constipation. Increase oral fluid and fiber intake. Contact primary care provider if you have not had a bowel movement within 48 hours after discharge. 7. No anti-inflammatory medication until discussed at first post operative visit, this including Motrin, Aleve, Mobic, Diclofenac 8. Follow up in office at 2 weeks postop with Trung Guzmán PA-C / Gilmar Guevara PA-C 9. Follow up with your primary care doctor 7-10 days after discharge. 10. Contact [facility] with any questions, . Keep incision clean, dry, intact. While showering, cover fusion tape was Saran wrap. Keep fusion tape on until follow-up appointment in office in 2 weeks Medications: Darrington 7.5 mg/325mg 1 q6h; Colace; Eliquis 2.5 mg BID x 2 weeks Discharge Disposition: TRANSFER TO SNF/ECF
[2022-01-26 10:30] LABS: Basophils # (A) 0.03 X 10*3/uL (0.00-0.10); Basophils % (A) 0.4 %; Eosinophils # (A) 0.28 X 10*3/uL (0.04-0.35); Eosinophils % (A) 3.8 %; HCT 32.8 % (37.2-46.3); HGB 10.8 g/dL (12.0-15.0); Immature Grans, Automated 0.3 %; Lymphocytes # (A) 2.07 X 10*3/uL (0.90-5.00); Lymphocytes % (A) 28.3 %; MCH 29.3 pg (27.0-32.0); MCHC 32.9 g/dL (32.0-37.0); MCV 89.1 fL (80.0-97.0); Mean Platelet Volume 11.8 fL (9.5-12.2); Monocytes # (A) 0.72 X 10*3/uL (0.20-1.00); Monocytes % (A) 9.8 %; NRBC Per 100 WBC 0 /100 WBCS (0.0-0.0); Neutrophils # (A) 4.19 X 10*3/uL (1.80-7.70); Neutrophils % (A) 57.4 %; Platelet Count 226 X 10*3/uL (140-440); RBC 3.68 X 10*6/uL (4.10-5.20); RDW 13.4 % (11.5-14.5); WBC 7.31 X 10*3/uL (4.50-10.00)
[2022-01-26 11:40] LABS: Glucose,Whole Blood 230 mg/dL (70-110)
[2022-01-26 14:55] VITALS: BP 116/68; PULSE 67; RESP 18; TEMP 98.4
[2022-01-26] MEDS: HYDROcodone/APAP 7.5-325MG 1 EACH TAB PO PRN (16:15)
--- NOTE | 2022-01-26 16:46 | P.PN ---
Subjective Progress Note Date: 01/26/22 This is a 76-year-old female status post right total knee arthroplasty and multiple other medical issues. Not requiring Norvasc ( home med) at this time, systolic blood pressures running in the low 1 teens to 120s. Pain better controlled. Passing flatus. Ambulating with PT/OT. Tolerating exertion well, denies lightheadedness, dizziness or focal deficits. Denies chest pain, palpitations or shortness of breath. Maintaining O2 sats in the high 90s on room air. Hemoglobin A1c 7.4, blood sugars 144 to 190s, on NovoLog sliding scale. Objective - Vital Signs Vital signs: Vital Signs Temp 98.0 F 01/26/22 08:00 Pulse 62 01/26/22 08:00 Resp 14 01/26/22 08:00 BP 126/75 01/26/22 08:00 Pulse Ox 97 01/26/22 08:00 FiO2 Intake & Output 01/25/22 01/26/22 01/26/22 18:59 06:59 18:59 Intake Total 300 Balance 300 Intake: Oral 300 Other: Voiding Method Toilet # Voids 3 2 1 # Bowel Movements 0 - Exam PHYSICAL EXAMINATION: General: Alert and oriented 3, sitting up in chair, no acute distress HEENT: Normocephalic. Neck is supple. Pupils reactive. MMM. Neck: supple, no JVD. CHEST EXAMINATION: Trachea is central. Symmetrical expansion. Lung morillo clear to auscultation and percussion. CARDIAC: Normal S1, S2 with no gallops. No murmurs. ABDOMEN: Soft. Bowel sounds present. Nontender. No organomegaly. Extremities: Right knee dressing clean dry and intact, minimal edema, No clubbing or cyanosis, no calf tenderness, positive DP pulse. Neurological: Cranial nerves II through XII grossly intact .No focal deficits noted Skin: No rash, warm and dry. - Labs CBC & Chem 7: 01/26/22 05:58 Labs: Abnormal Lab Results - Last 24 Hours (Table) 01/25/22 01/25/22 01/25/22 Range/Units 11:34 16:57 20:36 RBC (4.10-5.20) X 10*6/uL Hgb (12.0-15.0) g/dL Hct (37.2-46.3) % POC Glucose (mg/dL) 188 H 141 H 193 H (70-110) mg/dL 01/26/22 01/26/22 Range/Units 05:58 07:04 RBC 3.68 L (4.10-5.20) X 10*6/uL Hgb 10.8 L (12.0-15.0) g/dL Hct 32.8 L (37.2-46.3) % POC Glucose (mg/dL) 144 H (70-110) mg/dL Assessment and Plan Assessment: Status post right total knee arthroplasty postoperative day 2 Postoperative hypotension. Improving now. Continue home med Norvasc, reevaluate outpatient at [facility]. Sinus bradycardia asymptomatic. Heart rate currently in the 60s Hypertension History of rheumatoid arthritis on certolizumab q. 28 days. Hypothyroidism Diabetes type 2 [id number], A1c 7.4 GERD Depression Plan: Continue on current medication regime ,monitoring and symptomatic treatment. Home medications Norvasc to remain on hold, reevaluate at subacute rehab. Resuming metformin. Pain management, anticoagulation as per orthopedic surgery. Aggressive pulmonary toileting with incentive spirometer reinforced. Follow-up with PCP, Dr. Rivera Mcelroy in 1 week after DC from subacute rehab. The impression and plan of care has been dictated as directed. : I performed a history and examination of this patient, discussed the same with the dictator. I agree with the dictator's note ,documented as a scribe. Any additional findings or plans will be noted.
== END 2022-01-26 16:33 ==
LOC: OR 05:55 → 4SSUR 09:40 → OR 01-26 16:33
PROVIDERS: ATTEND Orthopaedic Surgery
DX: M17.11 Unilateral primary osteoarthritis, right knee (principal); M25.761 Osteophyte, right knee; G89.18 Other acute postprocedural pain; M25.561 Pain in right knee; E11.9 Type 2 diabetes mellitus without complications; K21.9 Gastro-esophageal reflux disease without esophagitis; M06.9 Rheumatoid arthritis, unspecified; I10 Essential (primary) hypertension; E07.9 Disorder of thyroid, unspecified; F32.9 Major depressive disorder, single episode, unspecified; M25.461 Effusion, right knee; Z90.49 Acquired absence of other specified parts of digestive tract; Z90.710 Acquired absence of both cervix and uterus; Z47.1 Aftercare following joint replacement surgery; Z96.652 Presence of left artificial knee joint; Z82.49 Family history of ischemic heart disease and other diseases of the circulatory system; Z79.84 Long term (current) use of oral hypoglycemic drugs; Z98.890 Other specified postprocedural states
CPT/HCPCS: 27447; 97116; 97162; 97535; 97165; 64999; 64448; 76942; 85025 ×2; 88300; 83036; 87635; 73560; C1713 ×2; C1776; J2250; J1100; J0690 ×2; J2405; J3010; C9113 ×3; J1170; J2795

== ENCOUNTER 2023-10-20 06:44 | Observation (INO) | payer MEDICARE, BC ==
--- NOTE | 2023-10-20 07:26 | ED ---
General Adult HPI - General Chief complaint: Chest Pain Stated complaint: Chest Pain Time Seen by Provider: 10/20/23 07:05 Source: patient Mode of arrival: ambulatory - History of Present Illness Initial comments: Dictation was produced using [employer] dictation software. please excuse any grammatical, word or spelling errors. Chief Complaint: 78-year-old female past medical history of diabetes, hypertension presents to the ER for chest pain History of Present Illness: Patient 78-year-old female states that she woke up at around 5 AM this morning for chest pain. States that initially was sharp. States that now it is currently an ache. Patient also reported associated na usea and diaphoresis. She does see [facility] former brace end for unknown cardiac reason. Denies any shortness of breath. Patient does not know if she has history of coronary artery disease. The ROS documented in this emergency department record has been reviewed and confirmed by me. Those systems with pertinent positive or negative responses have been documented in the HPI. All other systems are other negative and/or noncontributory. - Related Data Home Medications Medication Instructions Recorded Confirmed Pravastatin Sodium [Pravachol] 40 mg PO DAILY 07/01/14 01/23/22 metFORMIN HCL [Glucophage] 1,000 mg PO BID-W/MEALS 07/01/14 01/23/22 Levothyroxine Sodium [Synthroid] 125 mcg PO QAM 02/18/16 01/23/22 Metoprolol Succinate [Toprol XL] 25 mg PO HS 07/28/19 01/23/22 Previous Rx's Medication Instructions Recorded Apixaban [Eliquis] 2.5 mg PO BID #60 tab 01/26/22 Docusate [Colace] 100 mg PO DAILY #30 capsule 01/26/22 Famotidine [Pepcid] 20 mg PO BID #60 tablet 01/26/22 HYDROcodone/APAP 7.5-325MG [[place] 1 each PO Q6HR PRN #32 tab 01/26/22 7.5] INSULIN LISPRO (HumaLOG) [humaLOG] 0 unit SQ ACHS #10 ml 01/26/22 Sennosides-Docusate Sodium 2 each PO HS tab 01/26/22 [Senokot-S] Allergies Allergy/AdvReac Type Severity Reaction Status Date / Time No Known Allergies Allergy Verified 10/20/23 06:54 Review of Systems ROS Statement: Those systems with pertinent positive or pertinent negative responses have been documented in the HPI. ROS Other: All systems not noted in ROS Statement are negative. Past Medical History Past Medical History: Diabetes Mellitus, GERD/Reflux, Hypertension, Rheumatoid Arthritis (RA), Thyroid Disorder Additional Past Medical History / Comment(s): HX H-PYLORI , SCIATICA PAIN Hiatal hernia History of Any Multi-Drug Resistant Organisms: None Reported Past Surgical History: Cholecystectomy, Hysterectomy, Joint Replacement Additional Past Surgical History / Comment(s): TOTAL LEFT KNEE Past Anesthesia/Blood Transfusion Reactions: No Reported Reaction Additional Past Anesthesia/Blood Transfusion Reaction / Comment(s): no hx blood transfusion Past Psychological History: Depression Smoking Status: Never smoker Past Alcohol Use History: None Reported Past Drug Use History: None Reported - Past Family History Father Family Medical History: Myocardial Infarction ([place]) Mother Family Medical History: Myocardial Infarction ([place]) General Exam - General Exam Comments Initial Comments: PHYSICAL EXAM: General Impression: Alert and oriented x3, not in acute distress HEENT: Normocephalic atraumatic, extra-ocular movements intact, pupils equal and reactive to light bilaterally, mucous membranes moist. Cardiovascular: Heart regular rate and rhythm Chest: Able to complete full sentences, no retractions, no tachypnea Abdomen: abdomen soft, non-tender, non-distended, no organomegaly Musculoskeletal: Pulses present and equal in all extremities, no peripheral edema Motor: no focal deficits noted Neurological: CN II-XII grossly intact, no focal motor or sensory deficits noted Skin: Intact with no visualized rashes Psych: Normal affect and mood Course Vital Signs 10/20/23 06:49 Temperature 97.7 F Pulse Rate 39 L Respiratory 18 Rate Blood Pressure 142/64 O2 Sat by Pulse 100 Oximetry EKG Findings - EKG Comments: EKG Findings:: My EKG interpretation: Ventricular rate 78, sinus rhythm with sinus arrhythmia, QRS 103, QTc 408. No CT prolongation, no QTC prolongation, no ST or T-wave changes noted. EKG compared to 2014 showing no changes. Overall, this EKG is unremarkable Medical Decision Making - Medical Decision Making Was pt. sent in by a medical professional or institution (, PA, LUMBER KILN OPERATOR, urgent care, hospital, or group home...) When possible be specific @ -No Did you speak to anyone other than the patient for history (EMS, parent, family, police, friend...)? What history was obtained from this source @ -No Did you review nursing and triage notes (agree or disagree)? Why? @ -I reviewed and agree with nursing and triage notes Were old charts reviewed (outside hosp., previous admission, EMS record, old EKG, old radiological studies, urgent care reports/EKG's, group home records)? Report findings @ -No old charts were reviewed Differential Diagnosis (chest pain, altered mental status, abdominal pain women, abdominal pain men, vaginal bleeding, musculoskeletal, weakness, fever, dyspnea, syncope, headache, dizziness, GI bleed, back pain, seizure, CVA, palpatations, mental health)? @ -Differential Chest Pain: Stable Angina, Unstable Angina, STEMI, NSTEMI Aortic Dissection, Pneumothorax, Musculoskeletal, Esophageal Spasm GERD, Cholecystitis, Pancreatitis, Zoster, this is not meant to be an all-inclusive list. EKG interpreted by me (3pts min.). @ -See above X-rays interpreted by me (1pt min.). @ -Chest x-ray is nonacute CT interpreted by me (1pt min.). @ -None done U/S interpreted by me (1pt. min.). @ -None done What testing was considered but not performed or refused? (CT, X-rays, U/S, labs)? Why? @ -None What meds were considered but not given or refused? Why? @ -None Did you discuss the management of the patient with other professionals (professionals i.e. , PA, LUMBER KILN OPERATOR, lab, RT, psych nurse, psychosocial rehabilitation counselor, delinquency prevention social worker, teacher, unarmed security officer, casework supervisor)? Give summary @ -Case discussed with hospitalist for admission Was smoking cessation discussed for >3mins.? @ -No Was critical care preformed (if so, how long)? @ -No Were there social determinants of health that impacted care today? How? (Homelessness, low income, unemployed, alcoholism, drug addiction, transportation, low edu. Level, literacy, decrease access to med. care, alf, rehab)? @ -No Was there de-escalation of care discussed even if they declined (Discuss DNR or withdrawal of care, Hospice)? DNR status @ -No What co-morbidities impacted this encounter? (DM, HTN, Smoking, COPD, CAD, Cancer, CVA, ARF, Chemo, Hep., AIDS, mental health diagnosis, sleep apnea, morbid obesity)? @ -None Was patient admitted / discharged? Hospital course, mention meds given and route, prescriptions, significant lab abnormalities, going to OR and other pertinent info. @ -78-year-old female presents to the emergency department with atypical chest pain typical features. Signs upon arrival shows bradycardia of 39, rest of vital signs within acceptable limits. Patient no acute distress at the bedside. Repeat heart rate is improved. Laboratory evaluation is unremarkable. Troponin is negative. Magnesium slightly decreased at 1.5. Patient given oral magnesium. Patient on aspirin. Will be admitted consultation to cardiology. Undiagnosed new problem with uncertain prognosis? @ -No Drug Therapy requiring intensive monitoring for toxicity (Heparin, Nitro, Insulin, Cardizem)? @ -No Were any procedures done? @ -No Diagnosis/symptom? Acute, or Chronic, or Acute on Chronic? Uncomplicated (without systemic symptoms) or Complicated (systemic symptoms)? @ -Chest pain Side effects of treatment? @ -No Exacerbation, Progression, or Severe Exacerbation? @ -No Poses a threat to life or bodily function? How? (Chest pain, [place], [place], pneumonia, PE, COPD, DKA, ARF, appy, cholecystitis, CVA, Diverticulitis, Homicidal, Suicidal, threat to staff... and all critical care pts) @ -yes - Lab Data Result diagrams: 10/20/23 07:19 10/20/23 07:19 Lab Results 10/20/23 10/20/23 10/20/23 Range/Units 07:19 07:19 07:19 WBC 5.7 (3.8-10.6) k/uL RBC 4.06 (3.80-5.40) m/uL Hgb 12.5 (11.4-16.0) gm/dL Hct 38.4 (34.0-46.0) % MCV 94.6 (80.0-100.0) fL MCH 30.9 (25.0-35.0) pg MCHC 32.6 (31.0-37.0) g/dL RDW 12.8 (11.5-15.5) % Plt Count 240 (150-450) k/uL MPV 8.4 Neutrophils % 47 % Lymphocytes % 39 % Monocytes % 7 % Eosinophils % 5 % Basophils % 1 % Neutrophils # 2.7 (1.3-7.7) k/uL Lymphocytes # 2.2 (1.0-4.8) k/uL Monocytes # 0.4 (0-1.0) k/uL Eosinophils # 0.3 (0-0.7) k/uL Basophils # 0.0 (0-0.2) k/uL PT 10.6 (10.0-12.5) sec INR 1.0 (<1.2) APTT 23.2 (22.0-30.0) sec Sodium 136 L (137-145) mmol/L Potassium 4.7 (3.5-5.1) mmol/L Chloride 110 H (98-107) mmol/L Carbon Dioxide 18 L (22-30) mmol/L Anion Gap 8 mmol/L BUN 15 (7-17) mg/dL Creatinine 0.84 (0.52-1.04) mg/dL Est GFR (CKD-EPI)AfAm 78 (>60 ml/min/1.73 sqM) Est GFR (CKD-EPI)NonAf 67 (>60 ml/min/1.73 sqM) Glucose 157 H (74-99) mg/dL Calcium 9.6 (8.4-10.2) mg/dL Magnesium 1.5 L (1.6-2.3) mg/dL Total Bilirubin 0.5 (0.2-1.3) mg/dL AST 19 (14-36) U/L ALT 12 (4-34) U/L Alkaline Phosphatase 81 (38-126) U/L Troponin I (0.000-0.034) ng/mL Total Protein 7.1 (6.3-8.2) g/dL Albumin 4.0 (3.5-5.0) g/dL 10/20/23 Range/Units 07:19 WBC (3.8-10.6) k/uL RBC (3.80-5.40) m/uL Hgb (11.4-16.0) gm/dL Hct (34.0-46.0) % MCV (80.0-100.0) fL MCH (25.0-35.0) pg MCHC (31.0-37.0) g/dL RDW (11.5-15.5) % Plt Count (150-450) k/uL MPV Neutrophils % % Lymphocytes % % Monocytes % % Eosinophils % % Basophils % % Neutrophils # (1.3-7.7) k/uL Lymphocytes # (1.0-4.8) k/uL Monocytes # (0-1.0) k/uL Eosinophils # (0-0.7) k/uL Basophils # (0-0.2) k/uL PT (10.0-12.5) sec INR (<1.2) APTT (22.0-30.0) sec Sodium (137-145) mmol/L Potassium (3.5-5.1) mmol/L Chloride (98-107) mmol/L Carbon Dioxide (22-30) mmol/L Anion Gap mmol/L BUN (7-17) mg/dL Creatinine (0.52-1.04) mg/dL Est GFR (CKD-EPI)AfAm (>60 ml/min/1.73 sqM) Est GFR (CKD-EPI)NonAf (>60 ml/min/1.73 sqM) Glucose (74-99) mg/dL Calcium (8.4-10.2) mg/dL Magnesium (1.6-2.3) mg/dL Total Bilirubin (0.2-1.3) mg/dL AST (14-36) U/L ALT (4-34) U/L Alkaline Phosphatase (38-126) U/L Troponin I <0.012 (0.000-0.034) ng/mL Total Protein (6.3-8.2) g/dL Albumin (3.5-5.0) g/dL Disposition Clinical Impression: Chest pain Disposition: ADMITTED IP TO THIS [facility] Condition: Fair Referrals: Milly Mccormick DO [Primary Care Provider] - 1-2 days Decision Time: 08:47
[2023-10-20 07:33] LABS: Basophils % (A) 1 %; Eosinophils # (A) 0.3 k/uL (0-0.7); Eosinophils % (A) 5 %; HCT 38.4 % (34.0-46.0); HGB 12.5 gm/dL (11.4-16.0); Lymphocytes # (A) 2.2 k/uL (1.0-4.8); Lymphocytes % (A) 39 %; MCH 30.9 pg (25.0-35.0); MCHC 32.6 g/dL (31.0-37.0); MCV 94.6 fL (80.0-100.0); Mean Platelet Volume 8.4; Monocytes # (A) 0.4 k/uL (0-1.0); Monocytes % (A) 7 %; Neutrophils # (A) 2.7 k/uL (1.3-7.7); Neutrophils % (A) 47 %; Platelet Count 240 k/uL (150-450); RBC 4.06 m/uL (3.80-5.40); RDW 12.8 % (11.5-15.5); WBC 5.7 k/uL (3.8-10.6)
[2023-10-20 07:49] LABS: Partial Thromboplastin Time 23.2 sec (22.0-30.0); Prothrombin Time 10.6 sec (10.0-12.5)
--- NOTE | 2023-10-20 07:51 | XR ---
EXAMINATION TYPE: XR chest 2V DATE OF EXAM: 10/20/2023 COMPARISON: 07/30/2012 HISTORY: 78-year-old female with chest pain TECHNIQUE: PA and lateral views FINDINGS: Heart mildly enlarged. Interstitial opacities. Similar mild patchy right basilar opacity. No pleural effusion. IMPRESSION: Cardiomegaly and possible mild pulmonary vascular congestion. Some patchy atelectasis versus early in filtrate at the right base.
[2023-10-20 07:55] LABS: ALT 12 U/L (4-34); AST 19 U/L (14-36); African American GFR (CKD) 78 (>60 ml/min/1.73 sqM); Alkaline Phosphatase 81 U/L (38-126); Anion Gap 8 mmol/L; Blood Urea Nitrogen 15 mg/dL (7-17); Calcium 9.6 mg/dL (8.4-10.2); Carbon Dioxide 18 mmol/L (22-30); Chloride 110 mmol/L (98-107); Glucose 157 mg/dL (74-99); Magnesium 1.5 mg/dL (1.6-2.3); Non-African American GFR(CKD) 67 (>60 ml/min/1.73 sqM); Potassium 4.7 mmol/L (3.5-5.1); Sodium 136 mmol/L (137-145); Total Bilirubin 0.5 mg/dL (0.2-1.3); Total Protein 7.1 g/dL (6.3-8.2)
[2023-10-20] MEDS ORDERED: NITROGLYCERIN SL TABS 0.4 MG TAB SUBLINGUAL PRN (08:44)
[2023-10-20] MEDS: ASPIRIN 81 MG PO STA (09:46)
[2023-10-20] MEDS: MAGNESIUM OXIDE 400 MG TAB PO STA (09:46)
--- NOTE | 2023-10-20 12:00 | P.CRDCN ---
History of Present Illness History of present illness: HISTORY OF PRESENT ILLNESS: This is a 78-year-old female with a past medical history significant for frequent PVCs, hypertension, and hyperlipidemia. Patient follows in the office with Dr. Motta. We have been asked to see the patient in consultation for chest pain. Patient examined at the bedside. Patient states that she woke up this morning with chest pain on the right side of her chest. Patient currently denies any shortness of breath. She denied any radiation of the pain. At the time of examination, patient denies any chest pain or pressure. Vital signs are stable. Troponin negative x 1 DIAGNOSTICS: - EKG reveals sinus mechanism with PVCs. No signs of acute ischemia.. - Chest xray cardiomegaly and possible mild pulmonary vascular congestion. Some patchy atelectasis versus early infiltrate at the right base.. - Laboratory data: WBC 5.7. Hemoglobin 12.5. Platelet count 240. Sodium 136. Potassium 4.7. BUN 15. Creatinine 0.84. Magnesium 1.5. Troponin negative x 1 - Current home cardiac medications include amlodipine/benazepril 10-40 mg daily, metoprolol succinate 25 mg daily and pravastatin 40 mg daily. - Most recent echocardiogram obtained in May 2019 revealing normal LV systolic function - Patient underwent Lexiscan stress test in May 2019 which was negative for ischemia REVIEW OF SYSTEMS: At the time of my exam: CONSTITUTIONAL: Denies fever or chills. HEENT: Denies blurred vision, vision changes, or eye pain. Denies hemoptysis CARDIOVASCULAR: Denies chest pain. Denies orthopnea. Denies PND. Denies palpitations RESPIRATORY: Denies shortness of breath. GASTROINTESTINAL: Denies abdominal pain. Denies nausea or vomiting. HEMATOLOGIC: Denies bleeding disorders. GENITOURINARY: Denies any blood in urine. SKIN: Denies pruitis. Denies rash. PHYSICAL EXAM: VITAL SIGNS: Reviewed. GENERAL: Well-developed in no acute distress. HEENT: Head is normocephalic. Pupils are equal, round. Sclerae anicteric. Mucous membranes of the mouth are moist. Neck supple. No JVD or thyromegaly LUNGS: Respirations even and unlabored. Lungs essentially clear to auscultation bilaterally. HEART: Regular rate and rhythm. S1 and S2 heard. ABDOMEN: Soft. Nondistended. Nontender. EXTREMITIES: Normal range of motion. No clubbing or cyanosis. Peripheral pulses intact. No lower extremity edema NEUROLOGIC: Awake and alert. Oriented x 3. ASSESSMENT: Chest pain, troponin negative x 1 Frequent PVCs Hypertension Hyperlipidemia Obesity: BMI 33.5 PLAN: Obtain 2D echo to assess cardiac structure and function Resume home cardiac medications Hold beta-ann secondary to upcoming stress test Trend troponins If troponins remain negative, patient will undergo dobutamine stress test tomorrow N.p.o. at midnight Further recommendations pending patient course Nurse practitioner note has been reviewed by physician. Signing provider agrees with the documented findings, assessment, and plan of care documented by CHIL[employer] CARET[employer] as a scribe. Past Medical History Past Medical History: Diabetes Mellitus, GERD/Reflux, Hypertension, Rheumatoid Arthritis (RA), Thyroid Disorder Additional Past Medical History / Comment(s): HX H-PYLORI , SCIATICA PAIN Hiatal hernia History of Any Multi-Drug Resistant Organisms: None Reported Past Surgical History: Cholecystectomy, Hysterectomy, Joint Replacement Additional Past Surgical History / Comment(s): TOTAL LEFT KNEE Past Anesthesia/Blood Transfusion Reactions: No Reported Reaction Additional Past Anesthesia/Blood Transfusion Reaction / Comment(s): no hx blood transfusion Past Psychological History: Depression Smoking Status: Never smoker Past Alcohol Use History: None Reported Past Drug Use History: None Reported - Past Family History Father Family Medical History: Myocardial Infarction ([place]) Mother Family Medical History: Myocardial Infarction ([place]) Medications and Allergies Home Medications Medication Instructions Recorded Confirmed Type Pravastatin Sodium [Pravachol] 40 mg PO DAILY 07/01/14 10/20/23 History metFORMIN HCL [Glucophage] 1,000 mg PO BID-W/MEALS 07/01/14 10/20/23 History Metoprolol Succinate [Toprol XL] 25 mg PO DAILY 07/28/19 10/20/23 History Aspirin EC [Ecotrin Low Dose] 81 mg PO DAILY 10/20/23 10/20/23 History Certolizumab Pegol [Cimzia] 400 mg SQ Q28D 10/20/23 10/20/23 History HYDROcodone/APAP 5-325MG [[place] 1 tab PO DAILY PRN 10/20/23 10/20/23 History 5-325] Levothyroxine Sodium [Synthroid] 100 mcg PO DAILY 10/20/23 10/20/23 History amLODIPine BESYLATE/BENAZEPRIL 1 cap PO DAILY 10/20/23 10/20/23 History [Lotrel 10-40 mg Capsule] Allergies Allergy/AdvReac Type Severity Reaction Status Date / Time No Known Allergies Allergy Verified 10/20/23 10:28 Physical Exam Vitals: Vital Signs Temp Pulse Resp BP Pulse Ox 10/20/23 06:49 97.7 F 39 L 18 142/64 100 Intake and Output 10/19/23 10/20/23 10/20/23 22:59 06:59 14:59 Other: Weight 88.451 kg Results 10/20/23 07:19 10/20/23 07:19 Cardiac Enzymes 10/20/23 10/20/23 Range/Units 07:19 07:19 AST 19 (14-36) U/L Troponin I <0.012 (0.000-0.034) ng/mL Coagulation 10/20/23 Range/Units 07:19 PT 10.6 (10.0-12.5) sec APTT 23.2 (22.0-30.0) sec CBC 10/20/23 Range/Units 07:19 WBC 5.7 (3.8-10.6) k/uL RBC 4.06 (3.80-5.40) m/uL Hgb 12.5 (11.4-16.0) gm/dL Hct 38.4 (34.0-46.0) % Plt Count 240 (150-450) k/uL Comprehensive Metabolic Panel 10/20/23 Range/Units 07:19 Sodium 136 L (137-145) mmol/L Potassium 4.7 (3.5-5.1) mmol/L Chloride 110 H (98-107) mmol/L Carbon Dioxide 18 L (22-30) mmol/L BUN 15 (7-17) mg/dL Creatinine 0.84 (0.52-1.04) mg/dL Glucose 157 H (74-99) mg/dL Calcium 9.6 (8.4-10.2) mg/dL AST 19 (14-36) U/L ALT 12 (4-34) U/L Alkaline Phosphatase 81 (38-126) U/L Total Protein 7.1 (6.3-8.2) g/dL Albumin 4.0 (3.5-5.0) g/dL Current Medications Generic Name Dose Route Start Last Admin Trade Name Freq PRN Reason Stop Dose Admin Aspirin 325 mg 10/21/23 09:00 Aspirin 325 Mg Tab PO DAILY HEENA Nitroglycerin 0.4 mg 10/20/23 08:44 Nitroglycerin Sl Tabs 0.4 Mg Tab SUBLINGUAL Q5M PRN Chest Pain Intake and Output 10/19/23 10/20/23 10/20/23 22:59 06:59 14:59 Other: Weight 88.451 kg 10/20/23 07:19 10/20/23 07:19
[2023-10-20] MEDS: MAGNESIUM SULFATE-D5W PMX 1 GM in DEXTROSE/WATER 1 100ML.BAG IVPB SCH (12:16)
[2023-10-20] MEDS: amLODIPine 10 MG TAB PO SCH (12:51)
[2023-10-20] MEDS: lisinopriL 20 MG TAB PO SCH (12:51)
[2023-10-20 17:31] LABS: Glucose,Whole Blood 127 mg/dL (70-110)
[2023-10-20 20:09] LABS: Glucose,Whole Blood 190 mg/dL (70-110)
[2023-10-21 05:43] LABS: Glucose,Whole Blood 128 mg/dL (70-110)
[2023-10-21] MEDS ORDERED: DOBUTamine DRIP for NUC MED 500 MG in DEXTROSE/WATER 1 250ML.BAG IV PRN (06:00)
[2023-10-21] MEDS ORDERED: DOBUTamine DRIP for NUC MED 500 MG/250 ML BAG IV ONE (08:00)
--- NOTE | 2023-10-21 08:52 | P.PN ---
Subjective HISTORY OF PRESENT ILLNESS: This is a 78-year-old female with a past medical history significant for frequent PVCs, hypertension, and hyperlipidemia. Patient follows in the office with Dr. Motta. We have been asked to see the patient in consultation for chest pain. Patient examined at the bedside. Patient states that she woke up this morning with chest pain on the right side of her chest. Patient currently denies any shortness of breath. She denied any radiation of the pain. At the time of examination, patient denies any chest pain or pressure. Vital signs are stable. Troponin negative x 1 DIAGNOSTICS: - EKG reveals sinus mechanism with PVCs. No signs of acute ischemia.. - Chest xray cardiomegaly and possible mild pulmonary vascular congestion. Some patchy atelectasis versus early infiltrate at the right base.. - Laboratory data: WBC 5.7. Hemoglobin 12.5. Platelet count 240. Sodium 136. Potassium 4.7. BUN 15. Creatinine 0.84. Magnesium 1.5. Troponin negative x 1 - Current home cardiac medications include amlodipine/benazepril 10-40 mg daily, metoprolol succinate 25 mg daily and pravastatin 40 mg daily. - Most recent echocardiogram obtained in May 2019 revealing normal LV systolic function - Patient underwent Lexiscan stress test in May 2019 which was negative for ischemia 10/21/2023 Patient examined this morning at bedside. Patient denies having any further episodes of chest pain or pressure. She denies any shortness of breath. Vital signs are stable. Troponins are negative x 3. PHYSICAL EXAM: VITAL SIGNS: Reviewed. GENERAL: Well-developed in no acute distress. HEENT: Head is normocephalic. Pupils are equal, round. Sclerae anicteric. Mucous membranes of the mouth are moist. Neck supple. No JVD or thyromegaly LUNGS: Respirations even and unlabored. Lungs essentially clear to auscultation bilaterally. HEART: Regular rate and rhythm. S1 and S2 heard. ABDOMEN: Soft. Nondistended. Nontender. EXTREMITIES: Normal range of motion. No clubbing or cyanosis. Peripheral pulses intact. No lower extremity edema NEUROLOGIC: Awake and alert. Oriented x 3. ASSESSMENT: Chest pain, troponin negative x 1 Frequent PVCs Hypertension Hyperlipidemia Obesity: BMI 33.5 PLAN: Hold beta-ann secondary to upcoming stress test 2D echo ordered. Await results. Patient to undergo dobutamine stress echo today If negative she may be discharged home from a cardiac standpoint Further recommendations pending patient course Nurse practitioner note has been reviewed by physician. Signing provider agrees with the documented findings, assessment, and plan of care documented by [employer]SULTANT as a scribe. Objective - Vital Signs Vital signs: Vital Signs Temp 97.5 F L 10/21/23 07:00 Pulse 64 10/21/23 07:00 Resp 18 10/21/23 07:00 BP 134/80 10/21/23 07:00 Pulse Ox 97 10/21/23 07:00 FiO2 Intake & Output 10/20/23 10/21/23 10/21/23 18:59 06:59 18:59 Intake Total 500 Balance 500 Weight 88.451 kg Intake: Oral 500 Other: Voiding Method Toilet Toilet # Voids 1 2 - Labs CBC & Chem 7: 10/20/23 07:19 10/20/23 07:19 Labs: Abnormal Lab Results - Last 24 Hours (Table) 10/20/23 10/20/23 10/21/23 Range/Units 17:30 20:07 05:41 POC Glucose (mg/dL) 127 H 190 H 128 H (70-110) mg/dL
[2023-10-21] MEDS ORDERED: ASPIRIN 325 MG TAB PO SCH (09:00)
[2023-10-21] MEDS: PRAVASTATIN SODIUM 40 MG TAB PO SCH (09:37)
[2023-10-21] MEDS: ASPIRIN 81 MG PO SCH (09:38)
[2023-10-21 09:52] LABS: Chol/HDL Ratio 2.71 Ratio; LDL Cholesterol,Calculated 64.4 mg/dL (0.0-131.0)
--- NOTE | 2023-10-21 12:13 | CA ---
Transthoracic Echo Report Name: Melani Patrick Age: 78 Gender: F : 1945 Exam Date: 10/21/2023 10:51 Exam Location: [facility] Ht (in): 64 Wt (lb): 195 Ordering Physician: Niki Pisano Attending/Referring Phys: [id number], Aliya Parlor Chaperone Luisa Dunaway RDCS Procedure CPT: Indications: LV function, CP Cardiac Hx: Technical Quality: Good Contrast 1: Total Dose (mL): Contrast 2: Total Dose (mL): MEASUREMENTS (Male / Female) Normal Values 2D ECHO LV Diastolic Diameter PLAX 4.8 cm 4.2 - 5.9 / 3.9 - 5.3 cm LV Systolic Diameter PLAX 3.4 cm IVS Diastolic Thickness 1.5 cm 0.6 - 1.0 / 0.6 - 0.9 cm LVPW Diastolic Thickness 1.5 cm 0.6 - 1.0 / 0.6 - 0.9 cm LV Relative Wall Thickness 0.6 RV Internal Dim ED PLAX 3.5 cm LA Systolic Diameter LX 4.0 cm 3.0 - 4.0 / 2.7 - 3.8 cm LV Diastolic Volume MOD 4C 42.5 cm??? LV Systolic Volume MOD 4C 20.0 cm??? LV Ejection Fraction MOD 4C 53.0 % LV Cardiac Index MOD 4C 1083.6 cm???/min???m??? LV Diastolic Length 4C 7.1 cm LV Systolic Length 4C 6.4 cm LV Diastolic Volume MOD 2C 112.6 cm??? LV Systolic Volume MOD 2C 55.3 cm??? LV Ejection Fraction MOD 2C 50.9 % LV Cardiac Index MOD 2C 2764.1 cm???/min???m??? LV Diastolic Length 2C 8.2 cm LV Systolic Length 2C 6.4 cm LA Volume 53.8 cm??? 18 - 58 / 22 - 52 cm??? LA Volume Index 26.5 cm???/m??? 16 - 28 cm???/m??? M-MODE Aortic Root Diameter MM 3.7 cm AV Cusp Separation MM 2.5 cm DOPPLER AV Peak Velocity 143.5 cm/s AV Peak Gradient 8.2 mmHg MV Area PHT 5.6 cm??? Mitral E Point Velocity 121.9 cm/s Mitral A Point Velocity 81.0 cm/s Mitral E to A Ratio 1.5 MV Deceleration Time 135.1 ms TR Peak Velocity 242.4 cm/s TR Peak Gradient 23.5 mmHg Right Ventricular Systolic Press 28.5 mmHg FINDINGS Left Ventricle Left ventricular ejection fraction is estimated at 50-55 %. Left ventricular cavity size normal. Moderately increased septal wall thickness. Moderately increased posterior wall thickness. Normal left ventricular wall motion. Right Ventricle Mild right ventricular dilatation. Right ventricular systolic pressure within normal limits. Right Atrium Normal right atrial size. No right atrial thrombus or mass seen. Left Atrium Mildly increased left atrial diameter. Mildly increased left atrial volume. Mitral Valve Mitral valve thickened. Mitral annular calcification. Trace mitral regurgitation. Aortic Valve Trileaflet aortic valve. No aortic valve stenosis or regurgitation. Tricuspid Valve Structurally normal tricuspid valve. Mild tricuspid regurgitation. Pulmonic Valve Structurally normal pulmonic valve. Mild pulmonic regurgitation. Pericardium No pericardial or pleural effusion. Aorta Normal size aortic root and proximal ascending aorta. CONCLUSIONS Normal LV function Previewed by: Dr. Ramírez Motta MD (Electronically Signed) Final Date: 21 October 2023 12:12
--- NOTE | 2023-10-21 12:14 | CA ---
Dobutamine Stress Echocardiogram Report Melani Patrick Age: 78 Gender: F : 1945 Exam Date: 10/21/2023 10:19 Exam Location: [facility] Ordering Physician: Niki Pisano Referring Physician: [id number] Appian Bpm Developer: ANGELES, Technologist: Ht (in): 64 Wt (lb): 195 Procedure CPT: Indication: CP ICD-9 Codes: Rhythm: Patient History: Chest pain,Shortness of breath, diabetes, hyperlipidemia and family history of heart disease. Cardiac Medications: Medications in past 24 hours: Contrast: Total Dose (mL): Stress Results Protocol: Dobutamine Peak Dose (???g/kg/min): 30 Duration (min:sec): Atropine:(mg) Target HR: 122 Double Product: Resting HR: 83 Resting BP: 131 / 83 Peak HR: 138 Peak BP: 149 / 56 Max Predicted HR: 143 97 % Max Predicted HR Stress Summary: BP Response: Reason for Termination: Exceeded target heart rate (85% max predicted). INfusion time 8:25 Cardiac Symptoms: No Symptoms ECG Analysis Resting EKG: Normal sinus rhythm left axis deviation PVCs Stress EKG: Patient was given intravenous dobutamine or a period of 9 minutes as per protocol achieving 85% of predicted maximal heart rate. There were frequent PVCs and EKG changes were nondiagnostic Arrhythmia: Echo Analysis Base Echo Analysis: Normal left ventricular size wall motion systolic function Low Echo Anaylsis: Normal Peak Echo Analysis: Normal hyperdynamic response Recovery Echo: Normal MEASUREMENTS (Male/Female) Normal Values CONCLUSIONS Inconclusive EKG part of the stress test because of frequent ventricular ectopy Negative dobutamine stress echo Dr. Ramírez Motta MD (Electronically Signed) Final Date: 21 October 2023 12:13
[2023-10-21 12:19] LABS: Glucose,Whole Blood 164 mg/dL (70-110)
[2023-10-21 14:52] VITALS: BP 113/68; PULSE 68; RESP 16; TEMP 98.4
--- NOTE | 2023-10-22 13:51 | P.HPIM ---
History of Present Illness H&P Date: 10/21/23 Chief Complaint: Chest pain History and Physical and Discharge Summary: This 78-year-old female with past medical history significant for hypertension, hyperlipidemia, morbid obesity, diabetes mellitus, rheumatoid arthritis, gastroesophageal reflux disease and multiple other medical issues presented to the ER with complaints of chest pain. Reports the chest pain woke her up yesterday morning accompanied by diaphoresis, lasted approximately 10 to 15 minutes. Denies nausea vomiting or diarrhea. Denies abdominal pain. Denies shortness of breath. Denies recent illness. Denies cough ,congestion or fevers. Reports prior negative stress test years ago, no history of stents and positive family history of CAD. Currently denies any chest pain, palpitations or shortness of breath. Maintaining O2 sats in the high 90s on room air. Troponin negative x 3, EKG reported sinus rhythm with PVCs, chest x-ray reported possible mild pulmonary vascular congestion, some patchy atelectasis. Afebrile normal WBC. Hematology, coagulation unremarkable. Sodium, potassium, renal function stable, magnesium 1.5-supplemented. blood sugars controlled Review of Systems ROS Statement: Those systems with pertinent positive or pertinent negative responses have been documented in the HPI. ROS Other: All systems not noted in ROS Statement are negative. Past Medical History Past Medical History: Diabetes Mellitus, GERD/Reflux, Hypertension, Rheumatoid Arthritis (RA), Thyroid Disorder Additional Past Medical History / Comment(s): HX H-PYLORI , SCIATICA PAIN Hiatal hernia History of Any Multi-Drug Resistant Organisms: None Reported Past Surgical History: Cholecystectomy, Hysterectomy, Joint Replacement Additional Past Surgical History / Comment(s): BILAT TK Past Anesthesia/Blood Transfusion Reactions: No Reported Reaction Additional Past Anesthesia/Blood Transfusion Reaction / Comment(s): no hx blood transfusion Past Psychological History: Depression Smoking Status: Never smoker Past Alcohol Use History: None Reported Past Drug Use History: None Reported - Past Family History Father Family Medical History: Myocardial Infarction ([place]) Mother Family Medical History: Myocardial Infarction ([place]) Medications and Allergies Home Medications Medication Instructions Recorded Confirmed Type Pravastatin Sodium [Pravachol] 40 mg PO DAILY 07/01/14 10/20/23 History metFORMIN HCL [Glucophage] 1,000 mg PO BID-W/MEALS 07/01/14 10/20/23 History Metoprolol Succinate [Toprol XL] 25 mg PO DAILY 07/28/19 10/20/23 History Aspirin EC [Ecotrin Low Dose] 81 mg PO DAILY 10/20/23 10/20/23 History Certolizumab Pegol [Cimzia] 400 mg SQ Q28D 10/20/23 10/20/23 History HYDROcodone/APAP 5-325MG [[place] 1 tab PO DAILY PRN 10/20/23 10/20/23 History 5-325] Levothyroxine Sodium [Synthroid] 100 mcg PO DAILY 10/20/23 10/20/23 History amLODIPine BESYLATE/BENAZEPRIL 1 cap PO DAILY 10/20/23 10/20/23 History [Lotrel 10-40 mg Capsule] Allergies Allergy/AdvReac Type Severity Reaction Status Date / Time No Known Allergies Allergy Verified 10/20/23 10:28 Physical Exam Vitals: Vital Signs Temp Pulse Pulse Pulse Pulse Resp BP 10/21/23 07:00 97.5 F L 64 18 10/21/23 02:16 97.5 F L 52 L 16 10/20/23 19:20 98.0 F 37 L 16 10/20/23 13:27 98.2 F 66 16 10/20/23 12:52 77 18 146/58 10/20/23 11:00 71 16 145/84 BP Pulse Ox 10/21/23 07:00 134/80 97 10/21/23 02:16 102/61 97 10/20/23 19:20 126/73 94 L 10/20/23 13:27 141/92 96 10/20/23 12:52 95 10/20/23 11:00 98 Intake and Output 10/20/23 10/21/23 10/21/23 22:59 06:59 14:59 Intake Total 500 Balance 500 Intake: Oral 500 Other: Voiding Method Toilet # Voids 2 Weight 88.451 kg PHYSICAL EXAM: VITAL SIGNS: [As above] GENERAL: Well-nourished elderly female, alert and oriented x 3, sitting up in bed, no acute distress. HEENT: Normocephalic, atraumatic conjunctivae normal. eyes normal. NECK: Supple, no JVD. CARDIOVASCULAR: S1, S2 regular, No murmur RESPIRATION: Unlabored, equal air entry, clear to auscultation, bilateral bases diminished. ABDOMEN: Soft, nondistended, nontender . No guarding. no masses palpable. +BS. LEGS: No edema. no swelling NERVOUS SYSTEM: Cranial N 2-12 grossly normal.No focal deficits. Strength and sensation grossly intact. Skin: Warm and dry, no rash Results CBC & Chem 7: 10/20/23 07:19 10/20/23 07:19 Labs: Abnormal Lab Results - Last 24 Hours (Table) 10/20/23 10/20/23 10/21/23 Range/Units 17:30 20:07 05:41 POC Glucose (mg/dL) 127 H 190 H 128 H (70-110) mg/dL Assessment and Plan Assessment: Chest pain, troponins negative x 3 Hypomagnesemia, supplemented Diabetes mellitus Hypertension Hyperlipidemia Rheumatoid arthritis Hypothyroidism Morbid obesity, BMI 34 Plan: Continue on current medication resume ,monitoring and symptomatic treatment. Evaluated by cardiology, recommendations noted. patient is scheduled for dobutamine stress test today. Patient will be discharged home today in a stable condition with guarded prognosis pending stress test results, final DC recommendations and clearance per cardiology. The impression and plan of care has been dictated as directed. : I performed a history and examination of this patient, discussed the same with the dictator. I agree with the dictator's note ,documented as a scribe. Any additional findings or plans will be noted.
== END 2023-10-21 15:47 | disposition home or self-care (01) ==
LOC: EC 06:44 → 6NMEDSUR 08:44
PROVIDERS: ADMIT Family Medicine; ATTEND Family Medicine
DX: R07.89 Other chest pain (principal); E83.42 Hypomagnesemia; I49.3 Ventricular premature depolarization; I11.9 Hypertensive heart disease without heart failure; E11.9 Type 2 diabetes mellitus without complications; R00.1 Bradycardia, unspecified; E03.9 Hypothyroidism, unspecified; E78.5 Hyperlipidemia, unspecified; E66.01 Morbid (severe) obesity due to excess calories; Z68.34 Body mass index [BMI] 34.0-34.9, adult; K21.9 Gastro-esophageal reflux disease without esophagitis; M06.9 Rheumatoid arthritis, unspecified; Z79.01 Long term (current) use of anticoagulants; Z79.84 Long term (current) use of oral hypoglycemic drugs; Z79.890 Hormone replacement therapy; Z79.82 Long term (current) use of aspirin; Z79.4 Long term (current) use of insulin; Z79.899 Other long term (current) drug therapy
CPT/HCPCS: 96366; 96365; 99285; 36415; 93005; 93306; 93351; 80061; 80053; 83735; 84484; 85025; 85610; 85730; 71046; G0378 ×2; J1250; J3475